=== PATIENT | male | born 1950 | race Caucasian/White ===

== ENCOUNTER → 2019-10-11 16:58 | Outpatient (BNVA) | payer OTHER, SELFPAY | PROVIDERS: Family Provider Family Medicine; PCP Family Medicine; Visit Provider Nurse Practitioner Family | DX: S90.416A Abrasion, unspecified lesser toe(s), initial encounter (principal); L03.116 Cellulitis of left lower limb; I96 Gangrene, not elsewhere classified; L97.529 Non-pressure chronic ulcer of other part of left foot with unspecified severity; M86.172 Other acute osteomyelitis, left ankle and foot; X58.XXXA Exposure to other specified factors, initial encounter | CPT/HCPCS: 73630 ==

== ENCOUNTER 2019-10-11 17:56 | Inpatient (IN) | payer OTHER, MEDICARE, SELFPAY ==
[2019-10-11 18:22] VITALS: BP 135/105; PULSE 106; RESP 16; TEMP 36.9; O2SAT 97; BMI 25.8
--- NOTE | 2019-10-11 18:26 | ED_ITS ---
HPI - Extremity Problem General: Chief complaint: Extremity Problem,Nontraumatic Stated complaint: infected toe/left foot Time Seen by Provider: 10/11/19 18:22 History of Present Illness: HPI Narrative: Gokul is a nice 69-year-old male who comes in complaining of left great toe pain. Patient's had a callus to his toe for some time. Approximately 4 days ago he developed a blister to this area that is gotten progressively worse. Patient denies any fevers or chills but he does have pain to the great toe. Because of this he came in for evaluation. He denies any fevers or chills, nausea vomiting or pain other than in his toe. Patient denies ever have anything similar to this in the past. Associated symptoms: Deny chest pain, fever(s) or rash Review of Systems Const: Denies: fever(s), chills, body aches, fatigue, malaise or diaphoresis Eyes: Denies: change in vision, blurry vision, blind spots or photophobia ENMT: Denies: throat pain, odynophagia, hoarseness, swelling of lips/tongue, ear or mastoid pain, ear discharge, change in hearing or nasal discharge Card: Denies: chest pain, palpitations, irregular heart rhythm, edema, lightheadedness, syncope, pre-syncope, dyspnea on exertion or orthopnea Resp: Denies: dyspnea, productive cough, non-productive cough, wheezing, hemoptysis or chest congestion GI: Denies: abdominal pain, nausea, vomiting, hematemesis, coffee ground emesis, heartburn, diarrhea, constipation, GI cramping, hematochezia or melena : Denies: flank pain, dysuria, urinary frequency, urinary urgency or hematuria Musc: Denies: neck pain, back pain, extremity pain, extremity swelling, joint pain, joint swelling, joint redness, joint warmth or joint stiffness Skin/Breast: Reports: other (Blister with cellulitis of left great toe); Denies: rash, pruritus, erythema, skin tenderness or jaundice Neuro: Denies: headache(s), numbness in extremities, weakness in extremities, sensory changes, lack of coordination, difficulty walking, dizziness, vertigo, confusion or Slurred speech present Jamal/Lymph: Denies: easy bruising, easy bleeding, petechiae, purpura or enlarged lymph nodes All/Imm: Denies: urticaria, throat swelling, tongue swelling, facial swelling or acute wheezing PFSH ED PFSH: Medical History Blister of foot Coronary artery disease Depression Dyslipidemia Hypertension Insulin dependent diabetes mellitus Surgical History Status post cholecystectomy Stented coronary artery 2003 Family History Father Psychiatric illness Depression Mother Cancer Breast cancer Social History Smoking and tobacco status: former smoker Alcohol intake: never Substance/Drug Use: never Household members: spouse Housing: House Physical Exam Const: COMMON NORMALS: no acute distress, patient oriented x3, no limitations, healthy appearing and well nourished GENERAL APPEARANCE: cooperative, well kempt and well developed HENMT: COMMON NORMALS: normocephalic, atraumatic, external ears normal, EAC's normal and Normal external nose present HEAD & SCALP: normal to inspection, normocephalic and atraumatic FACE & SINUS: normal facial exam and face symmetric NOSE: Normal external nose present and Normal nares present E XTERNAL EAR: Yes external ears normal EXTERNAL AUDITORY CANAL: EAC's normal MOUTH: Normal oral and palatal mucosa present, lip normal and tongue normal Eye: COMMON NORMALS: Equal, round and reactive pupils present and conjunctivae normal GENERAL EYE: appearance normal, both eyes and all related structures ALIGNMENT: Yes alignment normal PERIORBITAL: periorbital findings normal EYELID: eyelids normal CONJUNCTIVA: Yes conjunctivae normal SCLERA: sclerae normal PUPIL: Yes Equal, round and reactive pupils present Neck/C-Spine: COMMON NORMALS: full ROM, no lymphadenopathy, supple, no meningeal signs and no JVD GENERAL: Yes normal visual inspection and Yes trachea midline Chest: COMMONS NORMALS: normal inspection of the chest and normal palpation of entire chest wall Resp: COMMON NORMALS: normal respiratory effort, No retractions and No use of accessory muscles EFFORT & INSPECTION: Yes able to speak in complete sentences and Yes symmetric chest movement AUSCULTATION: no crackles, no rales, no rhonchi and no wheezes Cardio: COMMON NORMALS: no JVD, regular rate, regular rhythm, S1 normal heart sound present and S2 normal heart sound present RATE: regular rate RHYTHM: regular rhythm HEART SOUNDS: S1 normal heart sound present, S2 normal heart sound present, no click, no gallops, no murmurs, no rubs and abnormal split S2 GI: COMMON NORMALS: Soft to palpation and No hepatosplenomegaly present PALPATION: Yes Soft to palpation, No Tenderness to palpation present (GI), No Guarding due to palpation present (GI), No Rigid due to palpation, Yes No hepatosplenomegaly present, No Hernia present, No Palpable mass present and No Pulsatile mass present : COMMON NORMALS: Yes no CVA tenderness BLADDER/KIDNEY EXAM: Yes no CVA tenderness Back/Pelvis: COMMON NORMALS: no CVA tenderness, thoracic and lumbar spine normal to inspection, no thoracic nor lumbar tenderness and thoraco-lumbar ROM normal Extremity: COMMON NORMALS: normal to inspection, full ROM, capillary refill normal, no joint enlargement, no clubbing, cyanosis or edema and no calf tenderness Neuro: COMMON NORMALS: patient oriented x3, CN's II-XII intact bilaterally, moves all extremities, no focal motor deficits and no sensory deficits noted MENINGEAL SIGNS: Yes no meningeal signs SPEECH: speech normal Psych: COMMON NORMALS: mental status grossly normal, Normal thought process present, cooperative, normal affect, speech normal and activity/motor behavior normal APPEARANCE: Yes well kempt SPEECH: Yes normal speech THOUGHT PROCESS: Normal thought process present Skin: COMMON NORMALS: turgor normal, no jaundice, no petechiae and no mottling NARRATIVE SKIN EXAM: Left great toe on dorsal aspect has blistering callus. Fluid underlying looks purulent and hemorrhagic. Mild surrounding cellulitis. GENERAL SKIN EXAM: turgor normal Course Vital Signs: Vital signs: Vital Signs Temperature 98.5 F 10/11/19 18:22 Pulse Rate 95 10/11/19 21:28 Respiratory Rate 14 10/11/19 21:28 Blood Pressure 129/71 10/11/19 21:28 Pulse Oximetry 96 10/11/19 21:28 MDM - Extremity (Nontraumatic) MDM Narrative: Medical decision making narrative: The case was reviewed with Drs. Amos and . They will admit and consult respectively. Patient's wound was opened and a tissue culture was obtained. He has been covered with Zosyn and vancomycin. There is a small amount of soft tissue gas in the toe but that does not extend beyond the DIP joint. I see no evidence of necrotizing fasciitis at this time. Lab Data: Attestation: I reviewed the patient's lab results. Labs: Lab Results 10/11/19 10/11/19 10/11/19 Range/Units 19:00 19:00 19:00 WBC 9.8 (4.0-10.0) 10^3/ uL RBC 4.90 (4.1-5.3) 10^6/u L Hgb 14.4 (11.7-16.6) g/dL Hct 42.9 (42.0-52.0) % MCV 87.6 (80-94) fL MCH 29.4 (28.0-34.0) pg MCHC 33.6 (30.0-36.0) g/dL RDW 12.6 (12.1-15.1) % Plt Count 195 (130-400) 10^3/c mm MPV 10.4 (7.4-10.4) fL Neut % (Auto) 75.5 % Lymph % (Auto) 16.2 % Greenwood % (Auto) 7.4 % Eos % (Auto) 0.2 % Baso % (Auto) 0.2 % Neut # (Auto) 7.4 (1.8-7.7) 10^3/u L Lymph # (Auto) 1.6 (0.8-4.8) 10^3/u L Greenwood # (Auto) 0.7 (0.2-0.9) 10^3/u L Eos # (Auto) 0.0 (0.0-0.8) 10^3/u L Baso # (Auto) 0.0 (0.0-0.1) 10^3/u L Nucleated RBC % (a uto) 0 % Nucleated RBCs # 0.0 /100WBC PT 13.50 H (10.5-13.3) SECO NDS INR 1.00 (0.8-1.2) APTT 27.7 (23.9-36.7) SECO NDS Sodium 132 L (136-145) mmol/L Potassium 4.5 (3.5-5.1) mmol/L Chloride 97 L (98-107) mmol/L Carbon Dioxide 24 (22-29) mmol/L Anion Gap 15.5 (5-19) BUN 16 (8-23) mg/dL Creatinine 0.8 (0.7-1.2) mg/dL GFR Calculation 95.8 (90-130) mL/min Glucose 313 H (65-115) mg/dL Calculated Osmolal ity 282 L (285-295) mOsm/k g Lactic Acid (0.5-2.2) mmol/L Calcium 9.1 (8.5-10.5) mg/dL Magnesium 2.1 (1.7-2.3) mg/dL Total Bilirubin 0.5 (0.15-1.2) mg/dL AST 12 (0-40) U/L ALT 18 (0-41) U/L Alkaline Phosphata se 95 (40-130) IU/L Total Protein 6.6 (6.6-8.7) g/dL Albumin 4.2 (3.5-5.2) g/dL Globulin 2.4 (1.3-4.6) g/dL Serum Ketones (Negative) 10/11/19 10/11/19 Range/Units 19:00 19:00 WBC (4.0-10.0) 10^3/ uL RBC (4.1-5.3) 10^6/u L Hgb (11.7-16.6) g/dL Hct (42.0-52.0) % MCV (80-94) fL MCH (28.0-34.0) pg MCHC (30.0-36.0) g/dL RDW (12.1-15.1) % Plt Count (130-400) 10^3/c mm MPV (7.4-10.4) fL Neut % (Auto) % Lymph % (Auto) % Greenwood % (Auto) % Eos % (Auto) % Baso % (Auto) % Neut # (Auto) (1.8-7.7) 10^3/u L Lymph # (Auto) (0.8-4.8) 10^3/u L Greenwood # (Auto) (0.2-0.9) 10^3/u L Eos # (Auto) (0.0-0.8) 10^3/u L Baso # (Auto) (0.0-0.1) 10^3/u L Nucleated RBC % (a uto) % Nucleated RBCs # /100WBC PT (10.5-13.3) SECO NDS INR (0.8-1.2) APTT (23.9-36.7) SECO NDS Sodium (136-145) mmol/L Potassium (3.5-5.1) mmol/L Chloride (98-107) mmol/L Carbon Dioxide (22-29) mmol/L Anion Gap (5-19) BUN (8-23) mg/dL Creatinine (0.7-1.2) mg/dL GFR Calculation (90-130) mL/min Glucose (65-115) mg/dL Calculated Osmolal ity (285-295) mOsm/k g Lactic Acid 1.0 (0.5-2.2) mmol/L Calcium (8.5-10.5) mg/dL Magnesium (1.7-2.3) mg/dL Total Bilirubin (0.15-1.2) mg/dL AST (0-40) U/L ALT (0-41) U/L Alkaline Phosphata se (40-130) IU/L Total Protein (6.6-8.7) g/dL Albumin (3.5-5.2) g/dL Globulin (1.3-4.6) g/dL Serum Ketones Negative (Negative) Imaging Data^: Left Foot: My impression: No evidence of osteomyelitis but gas present in tissue of the toe. US Vascular: My impression: Ultrasound venous Doppler left lower extremity -no DVT Ultrasound arterial Doppler left lower extremity -monophasic flow throughout. ETHAN 0.59. Discharge Plan Discharge Patient Disposition: Admitted As Inpatient Clinical Impression: Cellulitis of foot Condition: Stable Prescriptions: No Action losartan 100 mg tablet 100 mg PO DAILY RF: 0 metoprolol tartrate 25 mg tablet 12.5 mg PO BID RF: 0 aspirin [Aspir-Jolly] 325 mg tablet,delayed release (DR/EC) 325 mg PO DAILY RF: 0 SLIDING SCALE INSULIN SUBCUT RF: 0 paroxetine HCl 20 mg tablet 20 mg PO DAILY RF: 0 Referrals: Tian Anne MD [Primary Care Provider] - Coding Level of Care Code ED Material Clerk for [facility]
--- NOTE | 2019-10-11 18:30 | USCV_ITS ---
Ricardo, Joe Age: 69 Gender: M : 1950 Exam Date: 10/11/2019 19:40 Ordering Phys: Sudha Livingston DO Technologist: Rebecca Arellano Exam Location: [facility] – [place] Indication: PAIN HISTORY: Left foot pain, diabetic, discoloration and foul odor left great toe PROCEDURES: On the left side, the common femoral, superficial femoral, profunda femoral, popliteal, posterior tibial, greater saphenous veins, and the peroneal trunk were identified and interrogated in the standard fashion. These veins were found to be easily compressible with spontaneous blood flow. FINDINGS: No DVT or superficial thrombus seen in any vessel visualized in left leg CONCLUSIONS Negative left lower extremity deep venous ultrasound. Dr. Rosangela Sylvester MD (Electronically Signed) Final Date: 12 October 2019 09:31 S
--- NOTE | 2019-10-11 18:30 | XR_ITS ---
WS: [id number] Left foot, 3 views, 10/11/2019 2001 hours Clinical Data: infection Comparison: Left foot, 10/11/2019, 1720 hours. Findings: No fractures or dislocations are seen. No bone destruction or erosion is noted. No evidence of osteom yelitis is seen. The minimal soft tissue disruption on the ventral surface of the left great toe agai n is seen. There is an Achilles spur noted. XR/XR foot LT min 3V* [id number] Impression: 1. Negative for bony abnormalities. 2. Diminished air in the soft tissue of the ventral surface of the left great t oe.
--- NOTE | 2019-10-11 18:30 | USCV_ITS ---
Gokul Silva Age: 69 Gender: M : 1950 Exam Date: 10/11/2019 19:49 Ordering Phys: Sudha Livingston DO Technologist: Rebecca Arellano [place]am [place] [facility] [place] Indication: PAIN Risk Factors: diabetic Previous Vascular Surgery: none RIGHT LEFT BP: 136.0 / 71.00 BP: / 0 Waveform Velocity (cm/s) Velocity (cm/s) Waveform Iliac Prox 37.5 Monophasic Iliac Mid 47.0 Monophasic Iliac Distal Monophasic 51.0 BRANCH ADMINISTRATOR 70.7 Monophasic SFA Prox 27.2 Monophasic SFA Mid 93.1 Monophasic SFA Dist 40.6 Monophasic POP 59.8 Monophasic STOCKBROKER 44.4 Monophasic DPA 22.4 Monophasic ETHAN 0.6 FINDINGS bluish discolaration and foul odor from left great toe. C/O pain in toe to ankle area left Monophasic and continuous waveforms on the left side Diminished resting ETHAN 0.6 CONCLUSIONS Abnormal resting ETHAN on the left side, suggestive of moderately severe obstructive arterial disease possibly at the aortoiliac level Abnormal Doppler waveforms, may suggest collateral circulation Dr Dario Moreno MD FACC (Electronically Signed) Final Date: 13 October 2019 16:54 S
[2019-10-11 19:16] LABS: Basophils % 0.2 %; Eosinophils % 0.2 %; Hematocrit 42.9 % (42.0-52.0); Hemoglobin 14.4 g/dL (11.7-16.6); Lymphocytes # 1.6 10^3/uL (0.8-4.8); Lymphocytes % 16.2 %; Mean Corpuscular HGB Conc 33.6 g/dL (30.0-36.0); Mean Corpuscular Hemoglobin 29.4 pg (28.0-34.0); Mean Corpuscular Volume 87.6 fL (80-94); Mean Platelet Volume 10.4 fL (7.4-10.4); Monocytes # 0.7 10^3/uL (0.2-0.9); Monocytes % 7.4 %; Neutrophils # 7.4 10^3/uL (1.8-7.7); Neutrophils % 75.5 %; Nucleated Red Blood Cells % 0 %; Platelet Count 195 10^3/cmm (130-400); Red Cell Distribution Width 12.6 % (12.1-15.1); White Blood Count 9.8 10^3/uL (4.0-10.0)
[2019-10-11] MEDS: piperacillin-tazobactam 3.375 GM in sodium chloride 0.9% (plus) 50 ML IV (19:26)
[2019-10-11 19:29] VITALS: BP 126/76; PULSE 106; RESP 18; O2SAT 97
[2019-10-11 19:38] LABS: Ketone (Acetest) Serum Negative (Negative)
[2019-10-11 19:42] LABS: Partial Thromboplastin Time 27.7 SECONDS (23.9-36.7)
[2019-10-11 19:50] LABS: Alanine Aminotransferase 18 U/L (0-41); Albumin Level 4.2 g/dL (3.5-5.2); Alkaline Phosphatase 95 IU/L (40-130); Anion Gap 15.5 (5-19); Aspartate Amino Transferase 12 U/L (0-40); Blood Urea Nitrogen 16 mg/dL (8-23); Calcium 9.1 mg/dL (8.5-10.5); Carbon Dioxide 24 mmol/L (22-29); Chloride 97 mmol/L (98-107); Creatinine Clr Calc Pharmacy 94.2461; Globulin 2.4 g/dL (1.3-4.6); Glomerular Filtration Rate 95.8 mL/min (90-130); Glucose 313 mg/dL (65-115); Magnesium 2.1 mg/dL (1.7-2.3); Osmolality Calculated 282 mOsm/kg (285-295); Potassium 4.5 mmol/L (3.5-5.1); Sodium 132 mmol/L (136-145); Total Bilirubin 0.5 mg/dL (0.15-1.2); Total Protein 6.6 g/dL (6.6-8.7)
[2019-10-11 20:04] VITALS: BP 129/74; PULSE 94; RESP 16; O2SAT 97
--- NOTE | 2019-10-11 21:23 | P.HP_ITS ---
Providers/Chief Complaint Primary Care Provider: Tian Anne MD Chief Complaint: infected toe/left foot History of Present Illness Gokul Silva is a 69 year old male who carries history of coronary disease status post PCI, insulin-dependent diabetes, coming with chief complaint of worsening left toe swelling. 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 For last couple of days she has been noticing mild swelling of his left foot until yesterday he started noticing some redness and streaking around her left great toe. He is denying any fever, nausea, vomiting, chills, dysuria. His toe is getting more swollen and he noticed a blood-filled blister as well, he walks barefoot in his house and sometimes outside the house, he has cats and there is a lot of wildlife around his house as well. He cannot recall any trauma to his foot. Diagnostics in the ER revealed normal body temperature, normal blood pressure, he is not septic X-ray of the foot is showing soft tissue swelling with gas formation Concern for gas gangrene Dr. Mac has been notified Review of Systems Const: Reports: fever(s); Denies: chills, body aches or fatigue Eyes: Denies: change in vision ENMT: Denies: throat pain Card: Denies: chest pain Resp: Denies: dyspnea GI: Denies: abdominal pain : Denies: flank pain Musc: Reports: joint pain, joint swelling, joint redness, joint warmth and joint stiffness Skin/Breast: Reports: rash, erythema, changing lesions, changes in skin color and nail changes Neuro: Denies: headache(s) Psych: Denies: anxiety Endo: Denies: polyuria Jamal/Lymph: Denies: easy bruising All/Imm: Denies: urticaria Medications/Allergies Home Medications Medication Instructions Recorded Confirmed Last Taken Type SLIDING SCALE INSULIN SUBCUT 10/11/19 10/11/19 Unknown History aspirin 325 mg tablet,delayed 325 mg PO DAILY 10/11/19 Unknown History release losartan 100 mg tablet 100 mg PO DAILY 10/11/19 Unknown History metoprolol tartrate 25 mg tablet 12.5 mg PO BID 10/11/19 Unknown History paroxetine HCl 20 mg tablet 20 mg PO DAILY 10/11/19 10/11/19 Unknown History Allergies Allergy/AdvReac Type Severity Reaction Status Date / Time cephalexin [From Keflex] Allergy ALGY-Redness Verified 10/11/19 18:25 of Skin PFSH Acute PFSH: Medical History Blister of foot Coronary artery disease Depression Dyslipidemia Hypertension Insulin dependent diabetes mellitus Surgical History Status post cholecystectomy Stented coronary artery 2003 Family History Father Psychiatric illness Depression Mother Cancer Breast cancer Social History Smoking and tobacco status: former smoker Alcohol intake: never Substance/Drug Use: never Household members: spouse Housing: House Vitals/I&O/Wt Last Vital Signs Temp 98.5 F 10/11/19 18:22 Pulse 94 10/11/19 20:04 Resp 16 10/11/19 20:04 BP 129/74 10/11/19 20:04 Pulse Ox 97 10/11/19 20:04 10/11/19 10/11/19 10/11/19 06:59 14:59 22:59 Intake Total 50 / 50 Balance 50 / 50 Weight last 48 hrs Weight 81.647 kg Physical Exam Narrative: EXAM NARRATIVE: Head to toe examination Patient laying comfortably in his bed Afebrile S1, S2 no tachycardia Abdomen soft nontender nondistended EOMI, PERRLA Neurologically nonfocal exam Lungs are clear to auscultation Left lower leg has 1+ trace edema Left great toe plantar side has an open blister with serosanguineous discharge and blood-filled blister on the lateral side, absence of sensation up to his knee No crepitation Hyperemia without any signs of cyanosis or gangrene 1+ dorsalis pedis pulse on left as compared to right dorsalis pedis Data : 10/11/19 19:00 10/11/19 19:00 Micro: Microbiology 10/11/19 19:01 Blood Culture - Preliminary Blood SPECIMEN COLLECTED 10/11/19 19:00 Blood Culture - Preliminary Blood SPECIMEN COLLECTED A&P Assessment and plan (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 Mac is planning to take him to the OR for stent in the morning, will follow up with the culture sent from OR, hold losartan We will make him n.p.o., hold DVT prophylaxis, patient was eating dinner at the time of interview around 9:30 PM Hold insulin IV fluid resuscitation Analgesia with morphine and bowel regimen Status: Acute (2) Cellulitis of foot: He will need long-term podiatry follow-up, [facility], this might take some time until then advised him to follow-up with Dr. Mac Status: Acute (3) Diabetic foot ulcer: Check A1c level, he is hyperglycemic, does not follow-up with air brake operator or the retina specialist Status: Acute Attestations Medical Necessity Statement*: Anticipating stay in the hospital cross more than 2 midnights currently need OR evaluation for his worsening diabetic foot ulcer with gas formation Coding Level of Care Code Acute Trench Trimmer Fine for [facility] Diagnoses Gas gangrene A48.0 Cellulitis of foot L03.119 Diabetic foot ulcer E11.621; L97.509
[2019-10-11] MEDS: lidocaine 1% INJ 20 mL IM (21:27)
[2019-10-11 21:28] VITALS: BP 129/71; PULSE 95; RESP 14; O2SAT 96
[2019-10-11 22:19] VITALS: BP 114/66; PULSE 101; RESP 18; O2SAT 95
[2019-10-11 22:22] VITALS: BP 114/66; PULSE 101; RESP 24; O2SAT 97
[2019-10-11 23:31] LABS: C Reactive Protein 103.2 mg/L (0.0-4.9)
[2019-10-11] MEDS: sodium chloride 0.9% 1,000 ML 75 ML IV (23:43)
--- NOTE | 2019-10-11 23:47 | PC.PHAR ---
Vancomycin is dosed at 1000mg IVPB every 12 hours to produce a predicted trough level of 18.94 (population based pharmacokinetic analysis). A trough level has been ordered from the lab to be obtained before the fourth dose to confirm and adjust if needed.
[2019-10-12] VITALS (9 sets, daily range): BP systolic 107–160; BP diastolic 66–83; PULSE 79–96; RESP 14–20; TEMP 36.5–37.7; O2SAT 94–97
[2019-10-12 00:05] LABS: Estmated Average Glucose 240
--- NOTE | 2019-10-12 00:12 | PC.PHAR ---
Vancomycin is dosed at 1500mg IVPB every 12 hours to produce a predicted trough level of 17.19 (population based pharmacokinetic analysis). A trough level has been ordered from the lab to be obtained before the fourth dose to confirm and adjust if needed. The Zosyn is dosed at 3.375gm IVPB every 8 hours, each dose to be infused over 4 hours per extended infusion protocol.
[2019-10-12 00:16] LABS: Erythrocyte Sedimentation Rate 33 mm/hr (0-10)
[2019-10-12 01:02] LABS: Bacteria Urine 1+; Bilirubin Urine Neg (NEGATIVE); Blood Urine Neg (Negative); Glucose Urine UA 4+ (Normal); Ketones Urine Negative (Negative); Leukocyte Esterase Urine Negative (Negative); Nitrate Urine Negative (Negative); Protein Urine Neg (Negative); Squamous Epithelial Cell Urine 0-4 (0-5); Urine Appearance Clear (CLEAR); Urine Color Yellow (Yellow); Urobilinogen Urine Norm (Negative); pH Urine 5 (5-7)
[2019-10-12] MEDS: piperacillin-tazobactam 3.375 GM in sodium chloride 0.9% (plus) 50 ML IV ×3 (04:20→19:52)
[2019-10-12 04:34] LABS: Anion Gap 15.5 (5-19); Blood Urea Nitrogen 12 mg/dL (8-23); Calcium 9.1 mg/dL (8.5-10.5); Carbon Dioxide 23 mmol/L (22-29); Chloride 101 mmol/L (98-107); Creatinine Clr Calc Pharmacy 94.2461; Glomerular Filtration Rate 133.6 mL/min (90-130); Glucose 247 mg/dL (65-115); Osmolality Calculated 284 mOsm/kg (285-295); Potassium 4.5 mmol/L (3.5-5.1); Sodium 135 mmol/L (136-145)
[2019-10-12 05:56] LABS: Basophils % 0.1 %; Eosinophils # 0.1 10^3/uL (0.0-0.8); Eosinophils % 0.7 %; Hematocrit 39.2 % (42.0-52.0); Hemoglobin 13.3 g/dL (11.7-16.6); Lymphocytes # 1.4 10^3/uL (0.8-4.8); Lymphocytes % 21.2 %; Mean Corpuscular HGB Conc 33.9 g/dL (30.0-36.0); Mean Corpuscular Hemoglobin 29.7 pg (28.0-34.0); Mean Corpuscular Volume 87.5 fL (80-94); Mean Platelet Volume 10.9 fL (7.4-10.4); Monocytes # 0.6 10^3/uL (0.2-0.9); Monocytes % 8.6 %; Neutrophils # 4.6 10^3/uL (1.8-7.7); Neutrophils % 69.1 %; Nucleated Red Blood Cells % 0 %; Platelet Count 181 10^3/cmm (130-400); Red Blood Count 4.48 10^6/uL (4.1-5.3); Red Cell Distribution Width 12.5 % (12.1-15.1); White Blood Count 6.7 10^3/uL (4.0-10.0)
--- NOTE | 2019-10-12 06:02 | PM.CONSULT ---
Providers/Reason For Consult Consulting Physican/Specialty*: Angelo Mac D.P.M. Reason for Consult*: Diabetic ulcer with gangrene left hallux Attending Physician: Bhanu Amos MD Primary Care Provider: Tian Anne MD History of Present Illness History of Present Illness Gokul Silva is a 69 year old diabetic male admitted to hospital service 10/11/2019 for gangrenous left great toe. 2 days ago he noticed a blood filled blister initially went to urgent care and was referred for to the emergency room due to findings of soft tissue emphysema on x-ray at the left hallux. He denies any known puncture wound or injury patient denies any subjective nausea, vomiting, fever, chills, shortness of breath or chest pain. Review of Systems General: Reports: 10 or more systems reviewed and unremarkable except in HPI and below Const: Denies: fever(s) or chills Card: Denies: chest pain or palpitations Resp: Denies: productive cough GI: Denies: abdominal pain, nausea or vomiting : Denies: flank pain Musc: Reports: extremity swelling, joint pain, joint stiffness, limited range of motion and deformity Skin/Breast: Reports: sores, nail changes and change in hair; Denies: rash Neuro: Reports: numbness in extremities, sensory changes and difficulty walking Psych: Denies: suicidal ideation Jamal/Lymph: Denies: easy bruising Meds/Allergies Home Medications and Allergies Home Medications Medication Instructions Recorded Confirmed Last Taken Type SLIDING SCALE INSULIN SUBCUT 10/11/19 10/11/19 10/09/19 History aspirin 325 mg tablet,delayed 325 mg PO DAILY 10/11/19 10/11/19 10/10/19 History release losartan 100 mg tablet 100 mg PO DAILY 10/11/19 10/11/19 10/10/19 History metoprolol tartrate 25 mg tablet 12.5 mg PO BID 10/11/19 10/11/19 10/10/19 History paroxetine HCl 20 mg tablet 20 mg PO DAILY 10/11/19 10/11/19 10/11/19 History Allergies Allergy/AdvReac Type Severity Reaction Status Date / Time cephalexin [From Keflex] Allergy ALGY-Redness Verified 10/11/19 18:25 of Skin Current Medications Current Medications Generic Name Dose Route Start Last Admin Trade Name Freq PRN Reason Stop Dose Admin Piperacillin Sod/Tazobactam 50 mls @ 12.5 mls/hr 10/12/19 03:30 10/12/19 04:20 Sod 3.375 gm/ Sodium Chloride IV 12.5 mls/hr Q8H TIMOTEO Administration Protocol As Directed Sodium Chloride 1,000 mls @ 75 mls/hr 10/11/19 23:25 10/12/19 02:30 Sodium Chloride 0.9% IV 75 mls/hr .[id number] TIMOTEO Infusion Vancomycin HCl 1,500 mg/ 250 mls @ 250 mls/hr 10/12/19 00:00 10/12/19 02:30 Sodium Chloride IV Infused Q12H TIMOTEO Infusion Protocol As Directed PFSH Acute PFSH: Medical History Blister of foot Coronary artery disease Depression Dyslipidemia Hypertension Insulin dependent diabetes mellitus Surgical History Status post cholecystectomy Stented coronary artery 2003 Family History Father Psychiatric illness Depression Mother Cancer Breast cancer Social History Smoking and tobacco status: former smoker Alcohol intake: never Substance/Drug Use: never Household members: spouse Housing: House Vitals/I&O/Wt Last Vital Signs Temp 98.1 F 10/12/19 04:00 Pulse 86 10/12/19 04:00 Resp 18 10/12/19 04:00 BP 120/76 10/12/19 04:00 Pulse Ox 97 10/12/19 04:00 10/11/19 10/11/19 10/12/19 14:59 22:59 06:59 Intake Total 50 / 50 346.25 / 396.25 Output Total 300 / 300 Balance 50 / 50 46.25 / 96.25 Weight last 48 hrs Weight 180 lb Physical Exam Narrative: EXAM NARRATIVE: GENERAL: Patient is alert and oriented ?3 and in no acute distress. The following is a focused bilateral lower extremity exam. VASCULAR: Dorsalis pedis and posterior tibial arteries faintly palpable. Capillary refill time less than 3 seconds to the distal hallux bilaterally. Calf is supple and nontender proximally and distally. Diminished pedal hair growth bilaterally. Popliteal arteries palpable bilaterally. Focal edema to the left hallux. Utilizing arterial Doppler biphasic signal at the left dorsalis pedis and posterior tibial arteries appreciated. NEUROLOGICAL: Protective sensation intact 0/10 sites, tested with Quincy Jazmín monofilament to bilateral feet. DERMATOLOGICAL: Full-thickness wound with devitalized tissue at the plantar aspect of left hallux there is strong malodor present, purulence present, probes to bone at the plantar lateral aspect of the wound. Wound measures approximately 2 cm x 4 cm x 0.5 cm with surrounding erythema there is proximal streaking to the level of the forefoot. MUSCULOSKELETAL: No tenderness with debridement or palpation to the left hallux secondary to neuropathy. External dorsiflexion 5 degrees to neutral. First metatarsal phalangeal joint dorsiflexion 20 degrees at the left. Rectus foot type. No pain with posterior calf squeeze. 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 Silva is a 69-year-old insulin-dependent diabetic male A1c 10.0. 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 Patient is afebrile, white blood count 6.7. ESR 33, CRP 103.2 mg/L. On x-ray soft tissue emphysema appreciated localized to the left hallux, no obvious osteolysis. Wound probes to bone. I discussed clinical, radiographic and laboratory findings with patient at length. Discussed options of left hallux amputation versus surgical debridement and bone biopsy with wound care and long-term antibiotics for salvage efforts. Patient is agreeable to amputation of the left hallux. This is scheduled today 10/12/2019 at noon. Risks and complication of this procedure were discussed this includes residual infection, delayed healing at the incision site, dehiscence of the surgical incision, infection, need for further surgical debridement, need for higher level of amputation, need for antibiotic therapy, transfer pressure, decreased function of the left foot, transfer lesions and digital contractures of adjacent toes. Patient is agreeable and wishes to proceed. I was able to discuss plan of care with patient's Marie cell phone number is [phone] she states that she will be at the hospital this afternoon. 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
--- NOTE | 2019-10-12 07:36 | USCV_ITS ---
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 91.00 DPA 80.00 0.70 Ankle/Brachial Index 0.61 0.64 Pre-Exercise Toe Pressure FINDINGS Abnormal resting ABIs bilaterally Diminished resting TBI on the right side TBI was not obtained on the left side PVR waveforms showing loss of dicrotic notch bilaterally Low amplitude waveforms at the right ankle CONCLUSIONS Abnormal resting ETHAN on the left side, suggestive of moderately severe peripheral arterial disease Abnormal resting ETHAN and TBI on the right side , suggestive of mild to moderate peripheral arterial disease Dr Dario Moreno MD [facility] (Electronically Signed) Final Date: 13 October 2019 17:12 S
[2019-10-12] MEDS: aspirin 325 mg EC Tablet PO (09:14)
[2019-10-12] MEDS: clindamycin 150 mg Capsule 300 MG PO ×2 (09:14→21:38)
[2019-10-12] MEDS: metoprolol tartrate 25 mg Tablet 12.5 MG PO ×2 (09:14→18:13)
[2019-10-12] MEDS: sennosides-docusate Tablet 1 TAB PO (09:14)
[2019-10-12] MEDS: PARoxetine 20 mg Tablet PO (09:19)
[2019-10-12 09:57] LABS: Glucose Point of Care 178 mg/dL (70-110)
--- NOTE | 2019-10-12 10:19 | P.PN_ITS ---
Subjective Subjective: Interval history: Patient does not necessarily like being in the hospital but no specific complaints. He is never had a foot wound like this before. Currently n.p.o. with plan for surgery later on this morning to debride his toe. Appreciate Dr. Mac's assistance in this case Vitals/I&O/Wt Last Vital Signs Temp 99.5 F 10/12/19 07:38 Pulse 87 10/12/19 07:38 Resp 18 10/12/19 07:38 BP 134/74 10/12/19 07:38 Pulse Ox 95 10/12/19 07:38 10/11/19 10/12/19 10/12/19 22:59 06:59 14:59 Intake Total 50 / 50 346.25 / 396.25 Output Total 575 / 575 130 / 130 Balance 50 / 50 -228.75 / -178.75 -130 / -130 Weight last 48 hrs Weight 81.647 kg Physical Exam Const: OTHER: Alert, oriented x3, cooperative, a little sullen HENMT: OTHER: Normocephalic atraumatic, moist mucus membranes Eye: OTHER: Pupils reactive Resp: OTHER: Clear to auscultation bilaterally, no accessory muscle use noted Cardio: OTHER: Regular rate and rhythm, no murmurs GI: OTHER: Abdomen soft, nontender, nondistended with positive bowel sounds Extremity: NARRATIVE EXTREMITY EXAM: Left foot with intact dressing. I did not remove the dressing as has been evaluated by Dr. Mac with pictures inserted into the note and will be going to the OR later this morning Neuro: OTHER: Face symmetric, speech clear, moves all extremities Psych: OTHER: Normal affect Skin: OTHER: No other skin lesions noted to visible portions of the skin Data : 10/12/19 05:40 10/12/19 03:30 Micro: Microbiology 10/11/19 19:01 Blood Culture - Preliminary Blood SPECIMEN COLLECTED 10/11/19 19:00 Blood Culture - Preliminary Blood SPECIMEN COLLECTED A&P Assessment and plan (1) Gas gangrene: Plan is for OR today by Dr. Mac. CRP is 103.2 with an ESR of 33. 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 Corrective dose insulin added presently but will need to get on some long-acting insulin. In talking with the patient he states he only takes it as needed at home usually. Explained that he will need to take something regularly going forward to help with wound healing and decrease risk of recurrent similar problems Status: Acute (3) Hypertension: Chronically on losartan and beta-blockade Status: Acute Qualifiers: Hypertension type: essential hypertension Qualified Code(s): I10 - Essential (primary) hypertension (4) Dyslipidemia: Does not appear to be on any chronic treatment Status: Acute (5) Coronary artery disease: Chronic aspirin, beta-blockade and ARB Status: Acute Qualifiers: Coronary Disease-Associated Artery/Lesion type: habematolel artery [place] vs. transplanted heart: habematolel heart Associated angina: without angina Qualified Code(s): I25.10 - Atherosclerotic heart disease of habematolel coronary artery without angina pectoris (6) Depression: Status: Acute Qualifiers: Depression Type: unspecified Qualified Code(s): F32.9 - Major depressive disorder, single episode, unspecified Additional A&P Information N.p.o. for planned intervention today Check EKG preop Received Vanco and Zosyn in the emergency room, currently on vancomycin and clindamycin Add corrective dose insulin for now We will need to add long-acting insulin once taking oral intake Will need to reinforce regular use of diabetic medications in the outpatient setting On home aspirin and beta-blockade Home fluoxetine continued Losartan currently held in anticipation of intervention today Has pain medication, antiemetics and laxatives ordered Plan to start DVT prophylaxis postoperatively Supportive care otherwise Gave patient an opportunity to ask questions Anticipate patient will go home with his and will need follow-up in wound care clinic Full code Attestations Medical Necessity Statement*: Requires ongoing inpatient stay to address gangrene of the left great toe as noted above. At high risk of progressive disease if not treated. 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 transplanted heart: habematolel heart Associated angina: without angina Depression F32.9 Depression Type: unspecified
--- NOTE | 2019-10-12 10:28 | ECG_ITS ---
Measurements Intervals [place] Rate: 91 P: 26 PA: 170 QRS: 13 QRSD: 97 T: 15 QT: 335 QTc: 414 SINUS RHYTHM WITH OCCASIONAL SUPRAVENTRICULAR PREMATURE COMPLEXES POSSIBLE INFERIOR MYOCARDIAL INFARCTION [30 ms Q WAVE IN II/aVF], OF INDETERMINATE AGE No previous ECG available for comparison Electronically Signed On 10-12-2019 21:07:08 CDT by Daroi Moreno M.D. [email or web address]
--- NOTE | 2019-10-12 10:46 | PC.CHAP ---
Pastoral Care Encounter/Spiritual Assessment Type of Contact [x] Declined behavioral therapy coordinator visit [] Patient/Family/Request visit [] Outpatient visit [] Follow-up visit [] Physician referral [] Code/Alert [] Routine visit [] Staff referral [] Actively dying [] Patient sleeping [] Family support [] [] Out of room [] Palliative care [] [] Receiving care in room [] Pre-surgical visit [] Trauma [] Long length of stay [] ICU visit [] Other: Relational/Emotional Strength [] Patient feels connected with others/family/visitors/staff [] Distress [] Loneliness/isolation [] Abandonment Spirituality of Patient [] Person of [place] [] Attends Caodaism of their [place] [] Believes in Prayer [] Reads Bible or Worship materials [] There are Spiritual issues to be addressed 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 [] Prayer [] Active listening [] Non-anxious presence [] Spiritual/emotional support [] Crisis/trauma care [] Spiritual counseling [] Bereavement support [] Provided bereavement packet [] Provided Bible/devotional materials [] Provided toy/stuffed animal, coloring book to patient or family member [] Provided Communion [] Anointing/[place] [] Salvation [] Completed spiritual assessment [] Other: Impact on Illness or Injury [] Angry [] Fearful [] Anxious [] Often cries [] Exhaustion [] Unable to work [] Unable to attend sabianism [] Unable to walk/stand [] Unable to read [] Unable to drive [] Unable to eat/drink [] Unable to sleep [] Unable to be with family [] Patient intubated [] Other: Summary Rude and hostile attitude. Time spent with patient
--- NOTE | 2019-10-12 11:38 | P.ANESASSM_ITS ---
Pre-Anesthetic Assessment Pre-Anesthetic Assessment: Height/Weight: Height 1.78 m Weight 81.647 kg Temp Pulse Resp BP Pulse Ox 99.5 F 87 18 134/74 95 10/12/19 07:38 10/12/19 07:38 10/12/19 07:38 10/12/19 07:38 10/12/19 07:38 Proposed Procedure: Operation Date: 10/12/19 12:00 Proposed Procedures p Amputation Toe/s(Not Applicable) - Angelo Mac DPM Was Beta Harjit taken within 24 hours: Yes Last intake: Intake Last Solid Date 10/12/19 Social: Social History: No alcohol and No tobacco Exam: Pre-Anes Outpt Exam: alert, oriented x 3, clear to auscultation bilaterally and regular rate & rhythm Airway: Submandibular: WNL Cervical ROM: WNL MP: 2 Dentition: Full Pulmonary: Pulmonary: None reported CV/HEM: CV/HEM: HTN : : None reported Hepatic: Hepatic: None reported GI: GI: None reported Metabolic: Metabolic: DM Musc/skel: Musc/skel: None reported Neuropsych: Neuropsych: Depression Anesthetic Plan: ASA status: 3 Anesthesia: General and MAC Meds/Allergies Current Medications: Current Medications Generic Name Dose Route Start Last Admin Trade Name Freq PRN Reason Stop Dose Admin Aspirin 325 mg 10/12/19 09:00 10/12/19 09:14 Aspirin Ec PO 325 mg DAILY TIMOTEO Administration Clindamycin HCl 300 mg 10/12/19 09:00 10/12/19 09:14 Cleocin PO 300 mg TID TIMOTEO Administration Protocol Piperacillin Sod/T azobactam 50 mls @ 12.5 mls /hr 10/12/19 03:30 10/12/19 04:20 Sod 3.375 gm/ So dium Chloride IV 12.5 mls/hr Q8H TIMOTEO Administration Protocol As Directed Sodium Chloride 1,000 mls @ 75 ml s/hr 10/11/19 23:25 10/12/19 02:30 Sodium Chloride 0.9% IV 75 mls/hr .[id number] TIMOTEO Infusion Vancomycin HCl 1,5 00 mg/ 250 mls @ 250 mls /hr 10/12/19 00:00 10/12/19 02:30 Sodium Chloride IV Infused Q12H TIMOTEO Infusion Protocol As Directed Insulin Aspart 0 unit 10/12/19 08:00 10/12/19 10:23 Novolog SUBCUT 2 unit TIDWM TIMOTEO Administration Protocol Metoprolol Tartrat e 12.5 mg 10/12/19 09:00 10/12/19 09:14 Lopressor PO 12.5 mg BID TIMOTEO Administration Paroxetine HCl 20 mg 10/12/19 09:00 10/12/19 09:19 Paxil PO 20 mg DAILY TIMOTEO Administration Senna/Docusate Sod ium 1 tab 10/12/19 09:00 10/12/19 09:14 Senna-S PO 1 tab DAILY TIMOTEO Administration PFSH Anesthesia PFSH: Medical History (Updated 10/12/19 @ 10:25 by Dejah Ruiz MD) Blister of foot Coronary artery disease History of PCI Depression Dyslipidemia Hypertension Insulin dependent diabetes mellitus Surgical History Status post cholecystectomy Stented coronary artery 2003 Family History Father Psychiatric illness Depression Mother Cancer Breast cancer Social History Smoking and tobacco status: former smoker Alcohol intake: never Substance/Drug Use: never Household members: spouse Housing: House Data Anesthesia CBC & Chem 7: 10/12/19 05:40 10/12/19 03:30 Other Labs: Laboratory Results - last 48 hr 10/11/19 10/11/19 10/11/19 19:00 19:00 19:00 WBC 9.8 RBC 4.90 Hgb 14.4 Hct 42.9 MCV 87.6 MCH 29.4 MCHC 33.6 RDW 12.6 Plt Count 195 MPV 10.4 Neut % (Auto) 75.5 Lymph % (Auto) 16.2 [place] % (Auto) 7.4 Eos % (Auto) 0.2 Baso % (Auto) 0.2 Neut # (Auto) 7.4 Lymph # (Auto) 1.6 [place] # (Auto) 0.7 Eos # (Auto) 0.0 Baso # (Auto) 0.0 Nucleated RBC % (auto) 0 Nucleated RBCs # 0.0 ESR PT 13.50 H INR 1.00 APTT 27.7 Sodium 132 L Potassium 4.5 Chloride 97 L Carbon Dioxide 24 Anion Gap 15.5 BUN 16 Creatinine 0.8 GFR Calculation 95.8 Glucose 313 H POC Glucose Estimat Average Glucose Hemoglobin A1c Calculated Osmolality 282 L Lactic Acid Calcium 9.1 Magnesium 2.1 Total Bilirubin 0.5 AST 12 ALT 18 Alkaline Phosphatase 95 C-Reactive Protein Total Protein 6.6 Albumin 4.2 Globulin 2.4 Urine Color Urine Appearance Urine pH Ur Specific [place] Urine Protein Urine Glucose (UA) Urine Ketones Urine Blood Urine Nitrate Urine Bilirubin Urine Urobilinogen Ur Leukocyte Esterase Urine RBC Urine WBC Ur Squamous Epith Cells Urine Bacteria Serum Ketones 10/11/19 10/11/19 10/11/19 19:00 19:00 19:00 WBC RBC Hgb Hct MCV MCH MCHC RDW Plt Count MPV Neut % (Auto) Lymph % (Auto) [place] % (Auto) Eos % (Auto) Baso % (Auto) Neut # (Auto) Lymph # (Auto) [place] # (Auto) Eos # (Auto) Baso # (Auto) Nucleated RBC % (auto) Nucleated RBCs # ESR 33 H PT INR APTT Sodium Potassium Chloride Carbon Dioxide Anion Gap BUN Creatinine GFR Calculation Glucose POC Glucose Estimat Average Glucose Hemoglobin A1c Calculated Osmolality Lactic Acid 1.0 Calcium Magnesium Total Bilirubin AST ALT Alkaline Phosphatase C-Reactive Protein Total Protein Albumin Globulin Urine Color Urine Appearance Urine pH Ur Specific [place] Urine Protein Urine Glucose (UA) Urine Ketones Urine Blood Urine Nitrate Urine Bilirubin Urine Urobilinogen Ur Leukocyte Esterase Urine RBC Urine WBC Ur Squamous Epith Cells Urine Bacteria Serum Ketones Negative 10/11/19 10/11/19 10/12/19 19:00 19:00 00:15 WBC RBC Hgb Hct MCV MCH MCHC RDW Plt Count MPV Neut % (Auto) Lymph % (Auto) [place] % (Auto) Eos % (Auto) Baso % (Auto) Neut # (Auto) Lymph # (Auto) [place] # (Auto) Eos # (Auto) Baso # (Auto) Nucleated RBC % (auto) Nucleated RBCs # ESR PT INR APTT Sodium Potassium Chloride Carbon Dioxide Anion Gap BUN Creatinine GFR Calculation Glucose POC Glucose Estimat Average Glucose 240 Hemoglobin A1c 10.0 H Calculated Osmolality Lactic Acid Calcium Magnesium Total Bilirubin AST ALT Alkaline Phosphatase C-Reactive Protein 103.2 H Total Protein Albumin Globulin Urine Color Yellow Urine Appearance Clear Urine pH 5 Ur Specific [place] 1.020 Urine Protein Neg Urine Glucose (UA) 4+ H Urine Ketones Negative Urine Blood Neg Urine Nitrate Negative Urine Bilirubin Neg Urine Urobilinogen Norm Ur Leukocyte Esterase Negative Urine RBC 5-10 H Urine WBC 10-15 H Ur Squamous Epith Cells 0-4 H Urine Bacteria 1+ H Serum Ketones 10/12/19 10/12/19 10/12/19 03:30 05:40 09:54 WBC 6.7 RBC 4.48 Hgb 13.3 Hct 39.2 L MCV 87.5 MCH 29.7 MCHC 33.9 RDW 12.5 Plt Count 181 MPV 10.9 H Neut % (Auto) 69.1 Lymph % (Auto) 21.2 [place] % (Auto) 8.6 Eos % (Auto) 0.7 Baso % (Auto) 0.1 Neut # (Auto) 4.6 Lymph # (Auto) 1.4 [place] # (Auto) 0.6 Eos # (Auto) 0.1 Baso # (Auto) 0.0 Nucleated RBC % (auto) 0 Nucleated RBCs # 0.0 ESR PT INR APTT Sodium 135 L Potassium 4.5 Chloride 101 Carbon Dioxide 23 Anion Gap 15.5 BUN 12 Creatinine 0.6 L GFR Calculation 133.6 H Glucose 247 H POC Glucose 178 Estimat Average Glucose Hemoglobin A1c Calculated Osmolality 284 L Lactic Acid Calcium 9.1 Magnesium Total Bilirubin AST ALT Alkaline Phosphatase C-Reactive Protein Total Protein Albumin Globulin Urine Color Urine Appearance Urine pH Ur Specific [place] Urine Protein Urine Glucose (UA) Urine Ketones Urine Blood Urine Nitrate Urine Bilirubin Urine Urobilinogen Ur Leukocyte Esterase Urine RBC Urine WBC Ur Squamous Epith Cells Urine Bacteria Serum Ketones Micro: Microbiology 10/11/19 19:01 Blood Culture - Preliminary Blood SPECIMEN COLLECTED 10/11/19 19:00 Blood Culture - Preliminary Blood SPECIMEN COLLECTED Cardiac Studies: No Data to Display
[2019-10-12] MEDS: sodium chloride 0.9% 1,000 ML 30 ML IV (11:51)
[2019-10-12 12:04] LABS: Glucose Point of Care 190 mg/dL (70-110)
--- NOTE | 2019-10-12 12:44 | P.OP_ITS ---
Operative Report Date of procedure: October 12, 2019 Pre-op Diagnosis: Gas gangrene left great toe. Post-op diagnosis: same Post-op Findings: Devitalized tissue down the bone distal phalanx left hallux Procedure Done: Left great toe amputation through metatarsal phalangeal joint. CPT code 47673 Implants: 3-0 Vicryl. 4-0 nylon. Specimens removed/disposition: Left distal hallux bone and soft tissue sent to microbiology for culture and sensitivity. Pathology: Base of left hallux sent to pathology for permanent. Surgeon: Angelo Mac D.P.M. Medical Secretary: [place] Anesthesia: MAC Estimated blood loss: Minimal Tourniquet time: No tourniquet utilized IV fluids: None Urine output: None Complications: None Findings: Devitalized epidermis, dermis subcutaneous tissue tendon and bone at the distal phalanx left hallux. Clean margin at the first metatarsal phalangeal joint first metatarsal head appeared viable without signs of infection. Decreased bleeding however sufficient for skin healing. Condition: stable Disposition: floor Brief History: Gas gangrene left hallux with acute onset. No signs of sepsis. Soft tissue emphysema appreciated on plain film x-ray. Clinically wound probed to bone. Recommended left hallux amputation patient was agreeable. Discussed risks at length noted at consultation note documented earlier today. Procedure: Under mild sedation the patient was brought to the operating room and placed on the operative table in supine position. A timeout was performed. Anesthesia was administered by the anesthesia service. Local anesthesia injected by myself total of 20 cc of 0.5% Marcaine plain and a left Beauchamp block fashion. Well-padded pneumatic tourniquet was applied to the left ankle. No tourniquet utilized throughout the duration of the procedure. Attention was directed to the left foot where a full-thickness skin incision was made circumferentially in a fishmouth fashion at the first metatarsal phalangeal joint down to bone without skiving of the edges the left hallux was disarticulated through the metatarsal phalangeal joint sharply and passed from the operative field. Distal left hallux was sent to microbiology for culture and sensitivity, proximal hallux sent to pathology for permanent. Incision site was flushed with copious amounts of sterile saline solution. No pulsatile bleeders encountered. There was skin margin bleeding. Further irrigation was performed followed by extensor and flexor tendon resections at the most proximal margin. The first metatarsal head was directly visualized, there was no discoloration, normal firm density appreciated had bright white appearance without signs of infection. No further devitalized tissue appreciated at the foot. Further irrigation was performed followed by deep subcutaneous tissue closure which was reapproximated utilizing 3-0 Vicryl. Skin closed utilizing 4- 0 nylon without tension. Incision site was dressed with Adaptic, sterile 4 x 4's, ABD pad, Kerlix and Mike wrap without compression. Postop shoe was applied. Patient was transferred to the PACU with vital signs stable and vascular status intact. Following a period of postoperative monitoring he will be transferred back to the floor to continue empiric IV antibiotics at this time. He is to be limited weightbearing may heel touch only briefly for transfers with a postop shoe.
[2019-10-12 14:56] LABS: Glucose Point of Care 185 mg/dL (70-110)
--- NOTE | 2019-10-12 16:36 | PC.NURSE ---
PT STATED HE HAD WALKED TO BATHROOM WITHOUT USING CALL LIGHT AND INFORMED THE NURSE HE HAD A BM AND COULD NOT MAKE IT TO THE BATHROOM AND WAS TRYING TO CLEAN UP THE FLOOR AND LOST HIS BALANCE FALLING ONTO HIS KNEES AND THEN HITTING HIS HEAD ON THE BSC THAT WAS IN THE SHOWER. DR ARMSTRONG INFORMD, ASSESMENT DONE, PT HAS ABRASIONS ON KNEES AND THEN A REDDENED AREA TO FOREHEAD, PT IS ALERT AND ORIENTED, VITALS ARE READ, BP 148/79, HR86, RESPIRATIONS 18, TEMP 98.0. CHARGE NURSE ROSA RN ASSESSED PT WITH THIS NURSE WELL. NO OTHER INJURIES OR COMPLAINTS OF PAIN AT THIS TIME.
[2019-10-12] MEDS: sodium chloride 0.9% 1,000 ML 75 ML IV (19:55)
[2019-10-12 21:25] LABS: Glucose Point of Care 294 mg/dL (70-110)
[2019-10-13] VITALS: BP 124/76; PULSE 87; RESP 18; TEMP 37.2; O2SAT 97
[2019-10-13] MEDS: piperacillin-tazobactam 3.375 GM in sodium chloride 0.9% (plus) 50 ML IV (03:21)
--- NOTE | 2019-10-13 06:33 | PM.PN ---
Subjective Subjective: Interval history: Patient is seen bedside, he is 1 day status post left hallux amputation with primary closure doing well overnight denies any pain. Denies any fever. Tolerating regular diet. He is anxious to go home. He is okay for discharge from my standpoint. Clean margins taken in surgery, I did send specimens to path and microbiology which are pending. -Patient to remain limited weightbearing to the left lower extremity may heel touch for transfers with postop shoe otherwise should be resting and elevating, leave dressings intact until follow-up visit. -Will follow-up in podiatry clinic 10/18/2019 at 1 PM -I sent oral Bactrim to patient's pharmacy of choice [facility] will take Bactrim DS twice daily for 14 days Vitals/I&O/Wt Last Vital Signs Temp 99.0 F 10/13/19 00:00 Pulse 87 10/13/19 00:00 Resp 18 10/13/19 00:00 BP 124/76 10/13/19 00:00 Pulse Ox 97 10/13/19 00:00 10/12/19 10/12/19 10/13/19 14:59 22:59 06:59 Intake Total 803.75 / 803.75 300 / 1103.75 Output Total 155 / 155 280 / 435 Balance 648.75 / 648.75 -280 / 368.75 300 / 668.75 Weight last 48 hrs Weight 180 lb Physical Exam Narrative: EXAM NARRATIVE: Patient is alert and oriented ?3 and in no acute distress. The following is a focused bilateral lower extremity exam. VASCULAR: Dorsalis pedis and posterior tibial arteries faintly palpable. Capillary refill time less than 3 seconds to the distal hallux bilaterally. Calf is supple and nontender proximally and distally. Diminished pedal hair growth bilaterally. Popliteal arteries palpable bilaterally. Utilizing arterial Doppler biphasic signal at the left dorsalis pedis and posterior tibial arteries appreciated. NEUROLOGICAL: Protective sensation intact 0/10 sites, tested with [place] monofilament to bilateral feet. DERMATOLOGICAL: Status post left hallux amputation with primary closure, dressings are clean dry and intact no strikethrough bleeding. No proximal lymphangitic streaking erythema at the level of the dressing. MUSCULOSKELETAL: No pain at the perioperative site. Ankle dorsiflexion 5 degrees to neutral. First metatarsal phalangeal joint dorsiflexion 20 degrees at the left. Rectus foot type. No pain with posterior calf squeeze. 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 Silva is a 69-year-old insulin-dependent diabetic male 1 day status post left hallux amputation secondary to diabetic foot infection with gangrene. Doing well postop, denies any pain, is afebrile. Postoperative dressings are clean and dry without strikethrough. This will be left on until follow-up visit. -Patient okay for discharge from my standpoint. -Patient to follow-up in podiatry clinic 10/18/2019 at 1 PM -Leave current dressings in place and keep them clean and dry until follow-up visit -I sent oral Bactrim DS to be taken twice daily for 14 days to [facility] -Patient not experiencing any pain denies any need for pain medication on discharge -He is to be limited activity with postop shoe only may heel touch for transfers otherwise rest and elevate his left foot. 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
--- NOTE | 2019-10-13 06:43 | XR_ITS ---
WS: [id number] LEFT FOOT: 3 VIEW(S) TECHNIQUE: AP, oblique and lateral. HISTORY: post op COMPARISON: 10/11/2019 Since the prior examination the first phalanx has been surgically removed. Postsurgical changes in th e soft tissues distal to the first metatarsal head. No erosions at the first metatarsal head. Normal tarsal/metatarsal alignment. XR/XR foot LT min 3V* [id number] IMPRESSION: Interval resection first toe. No evident complications.
[2019-10-13 06:44] LABS: Glucose Point of Care 178 mg/dL (70-110)
[2019-10-13 08:00] VITALS: BP 152/78; PULSE 91; RESP 16; TEMP 36.7; O2SAT 97
[2019-10-13] MEDS: metoprolol tartrate 25 mg Tablet 12.5 MG PO (08:39)
[2019-10-13] MEDS: aspirin 325 mg EC Tablet PO (08:40)
[2019-10-13] MEDS: clindamycin 150 mg Capsule 300 MG PO (08:40)
[2019-10-13] MEDS: PARoxetine 20 mg Tablet PO (08:40)
--- NOTE | 2019-10-13 10:58 | P.DS_ITS ---
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 Mac, 10/12/2019 (4) Coronary artery disease: Status: Acute Problem details: History of PCI Qualifiers: Associated angina: without angina Coronary Disease-Associated Artery/Lesion type: [place] artery Platinum vs. transplanted heart: [place] heart Qualified Code(s): I25.10 - Atherosclerotic heart disease of [place] coronary artery without angina pectoris (5) Hypertension: Status: Acute Qualifiers: Hypertension type: essential hypertension Qualified Code(s): I10 - Essential (primary) hypertension (6) Dyslipidemia: Status: Acute (7) Depression: Status: Acute Qualifiers: Depression Type: unspecified Qualified Code(s): F32.9 - Major depressive disorder, single episode, unspecified Reason for Visit Reason for Visit: infected toe/left foot Hospital Course Hospital Course: Mr. Silva was admitted with evidence of gas gangrene of the left great toe. He was seen by podiatry. He was evaluated under anesthesia and ultimately decision was made to proceed to amputation of the left great toe. He had clean margins. Wound culture from admission were growing staph aureus prior to discharge. Sensitivities were pending. Cultures were collected during surgery as were blood cultures. These are still pending. With clean margins at the OR, it was felt safe for patient to be discharged home on oral antibiotics. He did have arterial Dopplers done though read was pending at the time of discharge. Venous duplex did not show any DVT. During the hospital stay, patient was noted to have significant hyperglycemia. Hemoglobin A1c was checked and was at 10. He was not able to tell us what type of insulin he has. He says he has 2 types. One is what he calls a controller insulin and the other when he takes as needed. He quit taking the controller insulin a while back because when his blood pressure is normalized to 120 or so he was symptomatic. Reviewed with him the absolute importance of better diabetic control to decrease the risk not only of recurrent infections like this but also to maximize wound healing from surgery. I had given patient some Levemir here, 6 units. Blood sugars were better than admission values but not where they need to be. I wrote a prescription to increase to 8 units and expect he will need it to be increased further but not knowing what type of insulin he has at home I was hesitant to go up too much. Patient prefers to discuss with his primary care provider Dr. Mack before making changes to insulin. I asked him in the interim to check his blood sugar several times a day and take a list of blood sugars with him to clinic. He can continue other medications. Patient was given an opportunity to ask questions prior to discharge. He expressed understanding of the need to have better blood sugar control and was able to repeat back to me the need to stay off of his leg and leave dressing intact until follow-up. Also reviewed not getting it wet or dirty. He was told to return or call Dr. Mac's office should he develop any fever, severe pain, significant bleeding or red streaks up his leg, or other concerning symptoms. Discharge Data Data Completed and Pending: Completed Studies During Hospitalization Category Date Time Status XR foot LT min 3V * [id number] Routine Exams 10/13/19 06:43 Completed XR foot LT min 3V * [id number] Stat Exams 10/11/19 18:30 [place] [address] Urgent Ultrasound 10/11/19 18:30 Completed Pending at discharge Category Date Time Status Abscess Culture a nd Gram Stain Stat Lab 10/11/19 21:10 Results Blood Culture Sta t Lab 10/11/19 19:01 Results Tissue Culture an d Gram Stain Stat Lab 10/12/19 12:24 Results Vancomycin Trough Timed Lab 10/13/19 11:00 Ordered Pathology: Surgic al [PTH] Routine Pth 10/12/19 12:51 [place] [address] Urge nt Ultrasound 10/11/19 18:30 [place] [address] Rout ine Ultrasound 10/12/19 07:36 Taken Labs from last 24 hours 10/13/19 10/12/19 10/12/19 06:28 21:23 14:52 POC Glucose 178 294 185 10/12/19 12:00 POC Glucose 190 Laboratory Tests 10/11/19 10/11/19 10/11/19 19:00 19:00 19:00 WBC Hgb ESR 33 H BUN Creatinine Hemoglobin A1c 10.0 H C-Reactive Protein 103.2 H 10/12/19 10/12/19 03:30 05:40 WBC 6.7 Hgb 13.3 ESR BUN 12 Creatinine 0.6 L Hemoglobin A1c C-Reactive Protein Vitals: Last Vital Signs Temp 98.1 F 10/13/19 08:00 Pulse 91 10/13/19 08:00 Resp 16 10/13/19 08:00 BP 152/78 10/13/19 08:00 Pulse Ox 97 10/13/19 08:00 Discharge Plan Discharge Patient Disposition: Home, Self-Care Condition: Stable Prescriptions: New acetaminophen 500 mg Tablet 500 mg PO Q6H PRN (Reason: mild pain or fever) Qty: 0 RF: 0 Levemir FlexTouch U-100 Insuln 100 unit/mL (3 mL) insulin pen 8 unit SUBCUT QPM Qty: 15 RF: 0 sulfamethoxazole-trimethoprim [Bactrim DS] 800-160 mg tablet 1 tab PO BID 14 Days Qty: 28 RF: 0 Continued losartan 100 mg tablet 100 mg PO DAILY RF: 0 metoprolol tartrate 25 mg tablet 12.5 mg PO BID RF: 0 aspirin [Aspir-Jolly] 325 mg tablet,delayed release (DR/EC) 325 mg PO DAILY RF: 0 SLIDING SCALE INSULIN SUBCUT RF: 0 paroxetine HCl 20 mg tablet 20 mg PO DAILY RF: 0 Discharge Orders: Discharge Order (Routine); Ordered 10/13/19 Ordered By: Dejah Ruiz Referrals: Angelo Mac DPM [Physician] - 10/18/19 1:00 pm (You have an appointment with Dr. Mac on October 17 at 1:00pm) Zohaib Mack [Primary Care Provider] - 10/18/19 3:30 am (Needs better blood sugar control. A1c 10.0. wrote for 8 u its of Levemir at bedtime. He just filled other insulin types and wants guidance from PCP for adjustments. Had foot infection requiring toe amputation. You have a phone visit on WedOctober 17 at 3:30pm. with Zohaib Mack.) Discharge Diet: Diabetic Discharge Activity: Limit activity as instructed Patient Instructions: Diabetes and Diet, Diabetes Mellitus Type 2 in Adults (DC) Activity Restrictions/Additional Instructions: Limited weight-bearing to the left lower extremity, may heel touch for transfers with postop shoe otherwise should be resting and elevating, leave dressings intact until follow-up visit. Follow-up in podiatry clinic 10/18/[address] Mac sent a prescription for oral Bactrim to pharmacy of [facility]. Take 1 tablet twice daily for 14 days. 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 transplanted heart: [place] heart Hypertension I10 Hypertension type: essential hypertension Dyslipidemia E78.5 Depression F32.9 Depression Type: unspecified
[2019-10-13 11:12] LABS: Glucose Point of Care 196 mg/dL (70-110)
[2019-10-13 11:36] VITALS: BP 146/74; PULSE 84; RESP 16; TEMP 37.9; O2SAT 95
[2019-10-13 11:53] LABS: Vancomycin Trough 13.2 ug/mL (10-15)
[2019-10-13 13:05] VITALS: BP 146/74; PULSE 84; RESP 16; TEMP 37.9; O2SAT 95
== END 2019-10-13 12:45 | disposition home or self-care (01) | DRG 255 ==
LOC: ER 21:58 → MEDSURG 22:14
PROVIDERS: Emergency Medicine; Podiatrist Foot & Ankle Surgery; Admitting Provider Internal Medicine; PCP Family Medicine; Visit Provider Hospitalist
PROC: 0Y6Q0Z2 Detachment at Left 1st Toe, Mid, Open Approach (ICD-10-PCS; principal; 2019-10-12 12:00)
DX: E11.52 Type 2 diabetes mellitus with diabetic peripheral angiopathy with gangrene (principal); A48.0 Gas gangrene; L03.116 Cellulitis of left lower limb; E11.621 Type 2 diabetes mellitus with foot ulcer; I25.10 Atherosclerotic heart disease of native coronary artery without angina pectoris; I10 Essential (primary) hypertension; F32.9 Major depressive disorder, single episode, unspecified; E78.5 Hyperlipidemia, unspecified; Z95.5 Presence of coronary angioplasty implant and graft; Z79.82 Long term (current) use of aspirin; Z79.4 Long term (current) use of insulin; Z87.891 Personal history of nicotine dependence
CPT/HCPCS: 12345; 36415; 36416; 73630; 80048; 80053; 80202; 81001; 82009; 82962; 83036; 83605; 83735; 85025; 85610; 85651; 85730; 86140; 87040; 87070; 87075; 87077; 87176; 87186; 87205; 88305; 93005; 93923; 93926; 93971; 96365; 96372; 99283; J1815; J2001; J2250; J2543; J2704; J3010; J3370; J3490; J7030; J7050

== ENCOUNTER → 2019-11-08 15:12 | Outpatient (BNVA) | payer OTHER, SELFPAY | PROVIDERS: PCP Family Medicine; Referring Provider Podiatrist Foot & Ankle Surgery; Visit Provider Internal Medicine Cardiovascular Disease | DX: I73.9 Peripheral vascular disease, unspecified (principal); Z79.899 Other long term (current) drug therapy | CPT/HCPCS: 80048; 85025 ==

== ENCOUNTER 2019-11-21 07:50 | Outpatient (CLI) | payer OTHER, SELFPAY ==
--- NOTE | 2019-11-21 08:00 | CT_ITS ---
WS: [id number] CTA ABDOMINAL AORTA WITH RUNOFF TECHNIQUE: Contrast enhanced CTA of the abdominal aorta with bilateral lower extremity runoff. Multip lanar reformatted images were obtained. MIP reformats were also reviewed. CLINICAL INFORMATION: PAD COMPARISON: None. DLP: 1417.[address] scans at [facility] use at least one of these dose optimization techniques: automat ed exposure control; mA and/or kV adjustment per patient size (includes targeted exams where dose is matched to clinical indication); or iterative reconstruction. FINDINGS: Mild diffuse fatty infiltration liver. Portal vein and splenic vein are patent. Cholecystec nata clips. Heterogeneous splenic enhancement likely due to arterial phase. Normal GE junction. Lung bases are well aerated. Normal renal parenchymal enhancement. No hydronephrosis. Small left renal cys t measuring 16 mm. Marked enlargement of prostate with heterogeneous enhancement. Prostate measures 5 .4 x 6.1 cm. Sigmoid diverticulosis. No evidence of acute diverticulitis. Densely calcified abdominal aorta with peripheral atheromatous disease. Celiac and SMA are patent. Pr oximal renal arteries are patent. No abdominal aortic aneurysm. RIGHT: Dense calcified right common iliac artery. External iliac artery is patent. External iliac art mikal is patent. Mild stenosis right common iliac artery origin. External iliac artery is patent. Commo n femoral artery is patent. Moderate calcified atheromatous disease right common femoral artery. Supe rficial femoral and deep femoral arteries are patent. SFA is patent to the adductor hiatus. Moderate stenosis at the adductor hiatus with narrowing popliteal origin measuring 30-40%. Popliteal artery is patent. Mild to moderate segmental narrowing involving the popliteal artery which remains patent. 50 % stenosis popliteal artery distally just above the knee. Popliteal artery is patent to the trifurcat ion with three-vessel runoff to the ankle. Somewhat diminutive and segmental anterior tibial runoff. LEFT: 60% narrowing left common iliac artery origin. External and internal iliac arteries are patent. Common femoral artery is patent. Superficial femoral and deep femoral arteries are patent. Mild narr owing at the superficial femoral artery origin. Deep femoral artery is patent. Superficial femoral ar alcira is patent. Moderate stenosis popliteal artery origin measuring 30-40% similar to the right side. Popliteal artery is patent to the trifurcation with approximately 30% stenosis just above the knee. Three-vessel runoff to the ankle. CT/CT angio abd aorta runof 25763 IMPRESSION: 1. 50% narrowing RIGHT distal popliteal artery just above the knee. Moderate s egmental narrowing involving the proximal popliteal artery. 2. RIGHT lower extremity three-vessel runoff with poor anterior tibial runoff. 3. 60% stenosis involving the LEFT common iliac artery origin which remains pa tent. 4. Moderate segmental narrowing involving the LEFT popliteal artery with appro ximately 30-40% stenosis at the adductor hiatus and 30% stenosis just above the knee. 5. Three-vessel runoff to the LEFT ankle. 6. Densely calcified abdominal aorta with calcified atheromatous disease and m ural thrombus. 7. Celiac, SMA, and both proximal renal arteries are patent. LARRY is patent. 8. Markedly enlarged prostate. Recommend correlation PSA.
[2019-11-21] MEDS: iohexol 350 mg/mL 100 mL Btl IV (08:34)
== END 2019-11-21 07:51 | disposition home or self-care (01) ==
LOC: RADWPI 07:54
PROVIDERS: Visit Provider Internal Medicine Cardiovascular Disease
DX: I73.9 Peripheral vascular disease, unspecified (principal); I70.8 Atherosclerosis of other arteries; I70.0 Atherosclerosis of aorta; N40.0 Benign prostatic hyperplasia without lower urinary tract symptoms
CPT/HCPCS: 75635; Q9967

== ENCOUNTER 2020-02-12 07:27 | Outpatient (CLI) | payer OTHER, SELFPAY ==
--- NOTE | 2020-02-12 08:00 | USCV_ITS ---
Ricardo Gokul Age: 69 Gender: M : 1950 Exam Date: 02/12/2020 07:45 Ordering Phys: Bhanu Hester MD ([email or web address]) Technologist: Cele Metz [place] [facility] [place]: [place]G PAIN HISTORY: Lower extremity pain. PROCEDURES: Venous duplex imaging was performed in bilateral lower extremities. The following venous structures were evaluated: common femoral vein, profunda vein, proximal portion of the greater saphenous vein, superficial femoral vein, and the popliteal vein. In addition, the posterior tibial and peroneal trunk were evaluated. Serial compression, augmentation maneuvers, and spectral Doppler flow evaluation were performed. FINDINGS: Normal 2-D Doppler and augmentation and compressibility throughout the lower extremity venous structures. Additional imaging through the proximal calf veins also reveals no thrombus. Limited evaluation of the greater saphenous vein is patent with no thrombus. CONCLUSIONS No DVT bilateral lower extremities. Dr. Tavia Plama DO (Electronically Signed) Final Date: 12 February 2020 11:06 S
--- NOTE | 2020-02-12 08:45 | USCV_ITS ---
Gokul Silva Age: 69 Gender: M : 1950 Exam Date: 02/12/2020 07:56 Ordering Phys: Bhanu Hester MD ([email or web address]) Technologist: Cele Metz Exam Location: [facility] [place] Indication: LEG PAIN Risk Factors: Previous Vascular Surgery: Right Brachial BP: / Left Brachial BP: / Right Left Velocity (cm/s) Spectral Plaque Velocity (cm/s) Spectral Plaque Syst/Diast Broadening Syst/Diast Broadening 68.40/ 15.40 Prox CCA 73.90 / 12.10 76.10/ 19.80 Mid CCA 49.60 / 9.90 79.40/ 23.20 Distal CCA 58.40 / 11.00 40.00/ 17.30 Prox ICA 39.20 / 9.90 64.80/ 26.40 Mid ICA 49.40 / 15.00 82.20/ 33.90 Distal ICA 48.50 / 16.30 129.00 ECA 177.30 1.08 ICA/CCA 1.00 Antegrade Vertebral Antegrade 46.70/ 10.60 cm/s 44.40/ 14.30 cm/s Tri Subclavian Tri 64.10 53.20 FINDINGS Comparison: none available. No significant elevation of systolic or diastolic velocities. Waveforms are normal. Mixture of calcified and noncalcified plaque in the bifurcations. CONCLUSIONS Bilateral ICA stenosis less than 50%. Mild bilateral carotid atherosclerosis. Dr. Tavia Palma DO (Electronically Signed) Final Date: 12 February 2020 09:12 S
== END 2020-02-12 07:28 | disposition home or self-care (01) ==
LOC: US 07:28
PROVIDERS: PCP Family Medicine; Visit Provider Internal Medicine Cardiovascular Disease
DX: M79.604 Pain in right leg (principal); M79.605 Pain in left leg; I65.23 Occlusion and stenosis of bilateral carotid arteries
CPT/HCPCS: 93880; 93970

== ENCOUNTER 2020-05-08 14:18 | Outpatient (RCR) | payer OTHER, SELFPAY | END 2020-06-02 23:59 | disposition home or self-care (01) | LOC: SPT 14:18 | PROVIDERS: PCP Family Medicine; Referring Provider Family Medicine; Visit Provider Family Medicine | DX: R53.1 Weakness (principal); M25.552 Pain in left hip; M25.551 Pain in right hip | CPT/HCPCS: 97161 ==

== ENCOUNTER 2021-11-17 10:27 | Emergency (ER) | payer OTHER, SELFPAY ==
[2021-11-17 11:21] VITALS: BP 119/72; PULSE 113; RESP 16; TEMP 36.7; O2SAT 97
--- NOTE | 2021-11-17 14:09 | CT_ITS ---
WS: [id number] CT ABDOMEN PELVIS TECHNIQUE: Noncontrast CT of the abdomen and pelvis with coronal and sagittal reformatted images. CLINICAL INFORMATION: abd pain COMPARISON: CTA November 21, 2019 DLP: 1074.[address] scans at [facility] use at least one of these dose optimization techniques: automated e xposure control; mA and/or kV adjustment per patient size (includes targeted exams where dose is matc hed to clinical indication); or iterative reconstruction. FINDINGS: Lung bases are well aerated. Small amount of micronodular patchy infiltrate in RIGHT middle lobe part ially visualized likely inflammatory. Normal noncontrast spleen. Small esophageal hiatal hernia. Fatt y atrophy of the pancreas. Cholecystectomy. Diffuse fatty infiltration of the liver. Heterogeneous attenuation undersurface LEFT hepatic lobe along the falciform ligament near the caudat e is nonspecific but appears somewhat masslike. Recommend further evaluation with ultrasound or contr ast-enhanced CT abdomen pelvis with liver protocol. No contrast administered on this examination. Adrenal glands are normal. Moderate aortic calcification. Normal caliber abdominal aorta. Small amoun t of perinephric edema. No hydronephrosis in either kidney. LEFT renal cyst measuring 16 mm. Bulky heterogeneous enlarged prostate with calcifications measuring 5.0 x 6.1 cm suspicious for neopl alix/hyperplasia. Thickening of the seminal vesicles bilaterally. Sigmoid diverticulosis. No evidence of acute diverticulitis. No abdominal or pelvic lymphadenopathy. No inguinal lymphadenopathy. CT/CT abdomen pelvis wo con [id number] IMPRESSION: 1. Sigmoid diverticulosis. No evidence of acute diverticulitis. 2. Markedly enlarged heterogeneous prostate with impingement on the bladder. P rostate measures 6.1 x 5.0 cm suspicious for neoplasia/hyperplasia.Recommend co rrelation PSA. Associated thickening of the seminal vesicles. 3. Diffuse fatty infiltration of the liver. 4. Bulky heterogeneous suspected lesion undersurface LEFT hepatic lobe near th e caudate. Recommend further evaluation with ultrasound and/or contrast-enhance d CT abdomen pelvis with liver protocol. This area measures approximately 3.2 x 3.2 CM. Recommend correlation with liver function tests. 5. Small LEFT renal cyst. No hydronephrosis in either kidney. 6. Tiny amount of micronodular infiltrate in the RIGHT middle lobe partially v isualized likely inflammatory. Notified Manuel Simpson MD at 11/17/2021 3:58 PM.
--- NOTE | 2021-11-17 14:35 | W.ED.GENADLT ---
HPI - General Adult General: Chief complaint: Nausea/Vomiting/Diarrhea Stated complaint: Vomiting x4 days Time Seen by Provider: 11/17/21 14:09 History of Present Illness: Patient is a 71-year-old male with history of prior cholecystectomy presenting to the emergency with nausea/vomiting and decreased p.o. intake for the last 5 days. Patient reports generalized weakness and inability to tolerate p.o. Patient denies any abdominal pain, diarrhea melena/hematochezia. Patient denies any fever or chills, cough, runny nose sore throat, chest pain, shortness breath or palpitation or lightheadedness. No complaints currently. Onset:5 days ago Duration:5 days Location:home Severity:moderate Associated symptoms: Reports nausea and vomiting; Deny chest pain, dyspnea, rash or palpitations Review of Systems Const: Denies: fever(s) or chills Eyes: Denies: change in vision ENMT: Denies: mouth pain Card: Denies: chest pain or palpitations Resp: Denies: dyspnea or non-productive cough GI: Reports: nausea, vomiting and other (+decreaesd po intake); Denies: abdominal pain or diarrhea : Denies: dysuria Musc: Denies: extremity pain Skin/Breast: Denies: rash or new lesions Neuro: Denies: weakness in extremities Psych: Reports: other (Normal mood) Jamal/Lymph: Denies: easy bruising PFSH ED PFSH: Medical History (Updated 11/17/21 @ 17:42 by Manuel Simpson MD) Blister of foot CAD (coronary artery disease) Coronary artery disease History of PCI Depression Dyslipidemia Hypertension Insulin dependent diabetes mellitus Surgical History Status post amputation of left great toe Status post cholecystectomy Stented coronary artery 2003 Family History Father Psychiatric illness Depression Mother Cancer Breast cancer Social History Smoking and tobacco status: former smoker Alcohol intake: never Household members: spouse Housing: House Physical Exam Const: COMMON NORMALS: alert HENMT: COMMON NORMALS: atraumatic HEAD & SCALP: atraumatic MOUTH: moist mucous membranes not abnormal Eye: COMMON NORMALS: EOMs intact bilaterally and conjunctivae normal CONJUNCTIVA: Yes conjunctivae normal Neck/C-Spine: COMMON NORMALS: full ROM and supple Resp: COMMON NORMALS: normal respiratory effort and clear to auscultation bilaterally AUSCULTATION: clear to auscultation bilaterally Cardio: COMMON NORMALS: regular rate RATE: regular rate GI: COMMON NORMALS: Soft to palpation and non-tender PALPATION: Yes Soft to palpation OTHER: No focal TTP. NO guarding rebound, guarding, rigidity. No CVA tenderness to percussion. Neg Jc/Neg McBurney's point tenderness, no suprabupic tenderness to palpation. Extremity: COMMON NORMALS: full ROM Neuro: SENSORIUM/ORIENTATION: Yes alert MOTOR EXAM: No Abnormal motor strength present and Other motor observations present (no focal motor deficits) Psych: COMMON NORMALS: speech normal SPEECH: Yes normal speech MOOD & AFFECT: Yes euthymic mood Course Vital Signs: Vital signs: Vital Signs Temperature 98.1 F 11/17/21 11:21 Pulse Rate 89 11/17/21 18:09 Respiratory Rate 16 11/17/21 18:09 Blood Pressure 145/75 11/17/21 18:09 Pulse Oximetry 95 11/17/21 18:09 MDM - General Adult Medical Decision Making Patient is 71-year-old male with history cholecystectomy presenting to the emergency with complaints of nausea/vomiting decreased p.o. intake for the last 5 days. On exam, patient is hemodynamically stable without any focal tenderness palpation on the abdomen. No guarding no rebound tenderness. Triage, patient was noted to be mildly tachycardic. However on arrival, patient's heart rate improved without intervention. Initial CT scan without contrast showed possible heterogeneous liver mass. However repeat CT does not show any focal findings. Patient is noted to have tiny right middle lobe inflammatory infiltrate. No suspicion for other acute intra-abdominal pathology including SBO, biliary pathology, appendicitis, diverticulitis, or other emergent condition requiring surgery. At the present time, I do not suspect ACS or unstable angina as patient has no active complaints of chest pain, troponin within normal limit. EKG is nonischemic. There appears to be mild right middle lobe infiltrate. Given leukocytosis, will treat this for pneumonia. Patient received Zofran and IVF reports feeling symptomatically improved. Patient is now able to tolerate p.o. and hold food down. Heart rate improved after IVF. Incidental findings of prostate mass discussed extensively with patient. Patient received a copy of the CT report with the documented findings. Patient is instructed to follow up urgently with specialists. I have given patient follow up with our classification case manager to be seen by our outpatient Urology for prostate lesion on CT report. Patient aware of a call from our classification case manager to schedule for appointment(s) and verbalizes understanding of the importance of following up. Rx tylenol PRN abd pain, maalox/pepcid PRN dyspepsia, and zofran PRN nausea/vomiting, doxycycline for possible PNA Disposition: Discharge. Patient counseled regarding diagnostic impression, treatment plan. Patient given ED strict return precautions to return for continuation, worsening, or development of new symptoms. Instructed to f/u w/ PCP regarding symptoms today. Patient verbalized understanding. Lab Data : 11/17/21 15:05 11/17/21 15:05 Radiology Impressions Abdomen/Pelvis CT 11/17/21 15:55 IMPRESSION: No mass in the questioned region of the left hepatic lobe. COMMENTS: Consistent with the [employer]'s Incidental Findings Committee white paper (J Am Karina Radiol 2018): Any incidental renal lesion less than 1 cm or classified as too small to characterize, or any incidental cystic renal lesion characterized as simple-appearing, is likely benign. No follow-up imaging is recommended for these lesions per consensus recommendations based on imaging criteria. Laboratory Results WBC 13.3 10^3/uL (4.0-10.0) H 11/17/21 15:05 RBC 5.99 10^6/uL (4.1-5.3) H 11/17/21 15:05 Hgb 17.6 g/dL (11.7-16.6) H 11/17/21 15:05 Hct 49.8 % (42.0-52.0) 11/17/21 15:05 MCV 83.1 fl (80-94) 11/17/21 15:05 MCH 29.4 pg (28.0-34.0) 11/17/21 15:05 MCHC 35.3 g/dL (30.0-36.0) 11/17/21 15:05 RDW 12.6 % (12.1-15.1) 11/17/21 15:05 Plt Count 259 10^3/cmm (130-400) 11/17/21 15:05 MPV 10.5 fL (7.4-10.4) H 11/17/21 15:05 Neut % (Auto) 72.6 % 11/17/21 15:05 Lymph % (Auto) 18.8 % 11/17/21 15:05 [place] % (Auto) 7.8 % 11/17/21 15:05 Eos % (Auto) 0.1 % 11/17/21 15:05 Baso % (Auto) 0.2 % 11/17/21 15:05 Neut # (Auto) 9.64 10^3/uL (1.8-7.7) H 11/17/21 15:05 Lymph # (Auto) 2.5 10^3/uL (0.8-4.8) 11/17/21 15:05 [place] # (Auto) 1.0 10^3/uL (0.2-0.9) H 11/17/21 15:05 Eos # (Auto) 0.0 10^3/uL (0.0-0.8) 11/17/21 15:05 Baso # (Auto) 0.0 10^3/uL (0.0-0.1) 11/17/21 15:05 Nucleated RBC % (auto) 0 % 11/17/21 15:05 Nucleated RBCs # 0.0 /100WBC 11/17/21 15:05 Sodium 138 mmol/L (136-145) 11/17/21 15:05 Potassium 3.4 mmol/L (3.5-5.1) L 11/17/21 15:05 Chloride 95 mmol/L (98-107) L 11/17/21 15:05 Carbon Dioxide 27 mmol/L (22-29) 11/17/21 15:05 Anion Gap 19.4 (5-19) H 11/17/21 15:05 BUN 25 mg/dL (8-23) H 11/17/21 15:05 Creatinine 0.9 mg/dL (0.7-1.2) 11/17/21 15:05 GFR Calculation Not Reportable 11/17/21 15:05 Glucose 77 mg/dL (65-115) 11/17/21 15:05 Calculated Osmolality 289 mOsm/kg (285-295) 11/17/21 15:05 Calcium 10.2 mg/dL (8.5-10.5) 11/17/21 15:05 Total Bilirubin 0.8 mg/dL (0.15-1.2) 11/17/21 15:05 AST 18 U/L (0-40) 11/17/21 15:05 ALT 28 U/L (0-41) 11/17/21 15:05 Alkaline Phosphatase 85 IU/L (40-130) 11/17/21 15:05 Troponin T Baseline 15 ng/L (0-15) 11/17/21 15:05 Troponin T 120 Minute 12.26 ng/L (0-15) 11/17/21 17:21 Delta Troponin T -2.74 ABS# (0-10) L 11/17/21 17:21 Total Protein 7.3 g/dL (6.6-8.7) 11/17/21 15:05 Albumin 4.9 g/dL (3.5-5.2) 11/17/21 15:05 Globulin 2.4 g/dL (1.3-4.6) 11/17/21 15:05 Lipase 13 U/L (13-60) 11/17/21 15:05 Urine Color Dark yellow (Yellow) 11/17/21 13:13 Urine Appearance Clear (CLEAR) 11/17/21 13:13 Urine pH 5 (5-7) 11/17/21 13:13 Ur Specific [place] 1.025 (1.005-1.030) 11/17/21 13:13 Urine Protein 1+ (Negative) H 11/17/21 13:13 Urine Glucose (UA) 4+ (Normal) H 11/17/21 13:13 Urine Ketones 2+ (Negative) H 11/17/21 13:13 Urine Blood Neg (Negative) 11/17/21 13:13 Urine Nitrate Negative (Negative) 11/17/21 13:13 Urine Bilirubin 1+ (Negative) H 11/17/21 13:13 Urine Urobilinogen 1 mg/dL (Negative) H 11/17/21 13:13 Ur Leukocyte Esterase Negative (Negative) 11/17/21 13:13 Urine RBC 0-4 /hpf (0-2) H 11/17/21 13:13 Urine WBC 0-4 /hpf (0-5) H 11/17/21 13:13 Ur Squamous Epith Cells 0-4 /hpf (0-5) H 11/17/21 13:13 Amorphous Sediment Not Reportable 11/17/21 13:13 Urine Bacteria None /hpf (NONE) 11/17/21 13:13 Urine Mucus 1+ /hpf 11/17/21 13:13 Imaging Data Other Imaging: [facility]'s [facility] [address] [place] [address] CT Scan Report Signed Patient: Gokul Silva Unit #: [id number] : 1950 Age/Sex: 71 / M ADM Date: 11/17/21 Loc: ER Room/Bed: Attending Dr: Ordering Provider/Ordering MD: Manuel Simpson MD Date of Service: 11/17/21 Procedure(s): CT abdomen pelvis w con* [id number] Accession Number(s): [id number] Report Number: [id number] PROCEDURE INFORMATION: Exam: CT Abdomen And Pelvis With Contrast Exam date and time: 11/17/2021 4:37 PM Age: 71 years old Clinical indication: Abnormal findings; Abnormal radiologic finding of the abdomen; Radiologic exam and body structure: Liver only; Additional info: Liver pathologies, per request of radiology TECHNIQUE: Imaging protocol: Computed tomography of the abdomen and pelvis with contrast. Radiation optimization: All CT scans at this facility use at least one of these dose optimization techniques: automated exposure control; mA and/or kV adjustment per patient size (includes targeted exams where dose is matched to clinical indication); or iterative reconstruction. Contrast material: OMNIPAQUE 350; Contrast volume: 95 ml; Contrast route: INTRAVENOUS (IV);? COMPARISON: CT abdomen pelvis wo con [id number] 11/17/2021 2:27 PM RADIATION DOSE METRICS: Total DLP (mGy-cm): 3172.54 FINDINGS: Liver: Diffuse hepatic steatosis. No mass in the questioned region within the left hepatic lobe from prior CT. Gallbladder and bile ducts: Cholecystectomy. No ductal dilation. Pancreas: Normal. No ductal dilation. Spleen: Normal. No splenomegaly. Adrenal glands: Normal. No mass. Kidneys and ureters: Redemonstrated small simple appearing left renal cyst in the inferior pole. Additional subcentimeter cysts noted in the right kidney. No hydronephrosis. Stomach and bowel: Sigmoid diverticulosis without findings of acute diverticulitis. No obstruction. No mucosal thickening. Appendix: No evidence of appendicitis. Intraperitoneal space: No free air. No significant fluid collection. Vasculature: No abdominal aortic aneurysm. Lymph nodes: No enlarged lymph nodes. Urinary bladder: Unremarkable as visualized. Reproductive: Enlarged prostate. Bones/joints: No acute fracture. Soft tissues: Unremarkable. CT/CT abdomen pelvis w con* [id number] IMPRESSION: No mass in the questioned region of the left hepatic lobe. ? COMMENTS: Consistent with the [employer]'s Incidental Findings Committee white paper (J Am Karina Radiol 2018): Any incidental renal lesion less than 1 cm or classified as too small to characterize, or any incidental cystic renal lesion characterized as simple-appearing, is likely benign. No follow-up imaging is recommended for these lesions per consensus recommendations based on imaging criteria. ? Dictated By: Negro Herman DO Signed By: Negro Herman DO Signed Date/Time: 11/17/21 1725 DD/ [address] [address] [address] Scan Report Signed Patient: Gokul Silva Unit #: [id number] : 1950 Age/Sex: 71 / M ADM Date: 11/17/21 Loc: ER Room/Bed: Attending Dr: Ordering Provider/Ordering MD: Manuel Simpson MD Date of Service: 11/17/21 Procedure(s): CT abdomen pelvis wo con [id number] Accession Number(s): [id number] Report Number: [id number] WS: [id number] CT ABDOMEN PELVIS TECHNIQUE: Noncontrast CT of the abdomen and pelvis with coronal and sagittal reformatted images. CLINICAL INFORMATION: abd pain COMPARISON: CTA November 21, 2019 DLP: 1074.[address] [facility] use at least one of these dose optimization techniques: automated exposure control; mA and/or kV adjustment per patient size (includes targeted exams where dose is matched to clinical indication); or iterative reconstruction. FINDINGS: Lung bases are well aerated. Small amount of micronodular patchy infiltrate in RIGHT middle lobe partially visualized likely inflammatory. Normal noncontrast spleen. Small esophageal hiatal hernia. Fatty atrophy of the pancreas. Cholecystectomy. Diffuse fatty infiltration of the liver. Heterogeneous attenuation undersurface LEFT hepatic lobe along the falciform ligament near the caudate is nonspecific but appears somewhat masslike. Recommend further evaluation with ultrasound or contrast-enhanced CT abdomen pelvis with liver protocol. No contrast administered on this examination. Adrenal glands are normal. Moderate aortic calcification. Normal caliber abdominal aorta. Small amount of perinephric edema. No hydronephrosis in either kidney. LEFT renal cyst measuring 16 mm. Bulky heterogeneous enlarged prostate with calcifications measuring 5.0 x 6.1 cm suspicious for neoplasia/hyperplasia. Thickening of the seminal vesicles bilaterally. Sigmoid diverticulosis. No evidence of acute diverticulitis. No abdominal or pelvic lymphadenopathy. No inguinal lymphadenopathy. CT/CT abdomen pelvis wo con [id number] IMPRESSION: ? 1.? Sigmoid diverticulosis. No evidence of acute diverticulitis. 2.? Markedly enlarged heterogeneous prostate with impingement on the bladder. Prostate measures 6.1 x 5.0 cm suspicious for neoplasia/hyperplasia.Recommend correlation PSA. Associated thickening of the seminal vesicles. 3.? Diffuse fatty infiltration of the liver. 4.? Bulky heterogeneous suspected lesion undersurface LEFT hepatic lobe near the caudate. Recommend further evaluation with ultrasound and/or contrast-enhanced CT abdomen pelvis with liver protocol. This area measures approximately 3.2 x 3.2 CM. Recommend correlation with liver function tests. 5.? Small LEFT renal cyst. No hydronephrosis in either kidney. 6.? Tiny amount of micronodular infiltrate in the RIGHT middle lobe partially visualized likely inflammatory. ? Notified Manuel Simpson MD at 11/17/2021 3:58 PM. ? ? Dictated By: Oni Granados MD Signed By: Oni Granados MD Signed Date/Time: 11/17/21 1558 DD/ 1544 Discharge Plan Discharge Patient Disposition: Home Clinical Impression: Nausea & vomiting, Decrease in appetite, Pneumonia Condition: Stable Prescriptions: New Pepcid 20 mg tablet 20 mg PO BID PRN (Reason: abdominal pain) 10 Days Qty: 20 0RF doxycycline hyclate 100 mg tablet 100 mg PO BID 10 Days Qty: 20 0RF No Action Novolin R Regular U-100 Insuln 100 unit/mL solution 2 unit SUBCUT .sliding scale 0RF losartan 100 mg tablet 100 mg PO DAILY 0RF paroxetine HCl 20 mg tablet 40 mg PO DAILY 0RF aspirin [Aspir-Jolly] 325 mg tablet,delayed release (DR/EC) 325 mg PO DAILY 0RF (DME) Diabetic Shoes See Rx Instructions .ROUTE .MEDSUPPLY Qty: 1 0RF Rx Instructions: toe filler left great toe tamsulosin 0.4 mg capsule 0.8 mg PO DAILY 0RF metoprolol tartrate 25 mg tablet 12.5 mg PO BID Qty: 90 3RF finasteride 5 mg Tablet 5 mg PO DAILY 0RF Discharge Orders: Discharge ED (Routine); Ordered 11/17/21 Ordered By: Manuel Simpson Referrals: Madison Villegsa MD [Primary Care Provider] - Patient Instructions: Acute Nausea and Vomiting (ED) Activity Restrictions/Additional Instructions: Please come back if you have any abdominal pain, fever or chills, nausea or vomiting, diarrhea, blood in the stool, inability hold down liquid or solids, or any new concerning complaints. Please take your antibiotics as instructed. Watch out for signs of skin changes/redness, mouth redeness or swelling, nausea/vomiting, diarrhea, blood in the urine or any new or concerning complaints. Our classification case manager will have you follow-up with Urology in the next few days for prostate lesion. You would be expected to have a phone call with our classification case manager who will put you on the schedule. You can expect a call from us in the next 2-3 days. If you don't hear from us, call us back in the emergency room at [phone]. Here's a copy of your CT report: Gokul Silva??71??M??1950 ? Allergy/Adv: atorvastatin, cephalexin, lisinopril, metformin (More??) Close Abdomen/Pelvis CT (Signed) Negro Herman - 11/17/21 Abdomen/Pelvis CT (Signed) Oni Graandos - 11/17/21 Carotid Doppler Study (Signed) Tavia Palma - 02/12/20 Venous Duplex (Signed) Tavia Palma - 02/12/20 Aorta w/Runoff CTA (Signed) Oni Granados - 11/21/19 Foot X-Ray (Signed) Tavia Palma - 10/13/19 Doppler Study Ultrasound (Signed) Dario Moreno - 10/12/19 Venous Duplex (Signed) Rosangela Sylvester - 10/11/19 Foot X-Ray (Signed) Ольга Sylvestern - 10/11/19 Duplex Scan Lower Extremity Artery (Signed) Kojo Morenomonycarlos alberto - 10/11/19 Foot X-Ray (Signed) Tyree Gibbs - 10/11/19 Launch?Image [facility] [address] [place] [address] CT Scan Report Signed Patient: Gokul Silva Unit #: [id number] : 1950 Age/Sex: 71 / M ADM Date: 11/17/21 Loc: ER Room/Bed: Attending Dr: Ordering Provider/Ordering MD: Manuel Simpson MD Date of Service: 11/17/21 Procedure(s): CT abdomen pelvis wo con [id number] Accession Number(s): [id number] Report Number: [id number] WS: [id number] CT ABDOMEN PELVIS TECHNIQUE: Noncontrast CT of the abdomen and pelvis with coronal and sagittal reformatted images. CLINICAL INFORMATION: abd pain COMPARISON: CTA November 21, 2019 DLP: 1074.[address] scans at [facility] use at least one of these dose optimization techniques: automated exposure control; mA and/or kV adjustment per patient size (includes targeted exams where dose is matched to clinical indication); or iterative reconstruction. FINDINGS: Lung bases are well aerated. Small amount of micronodular patchy infiltrate in RIGHT middle lobe partially visualized likely inflammatory. Normal noncontrast spleen. Small esophageal hiatal hernia. Fatty atrophy of the pancreas. Cholecystectomy. Diffuse fatty infiltration of the liver. Heterogeneous attenuation undersurface LEFT hepatic lobe along the falciform ligament near the caudate is nonspecific but appears somewhat masslike. Recommend further evaluation with ultrasound or contrast-enhanced CT abdomen pelvis with liver protocol. No contrast administered on this examination. Adrenal glands are normal. Moderate aortic calcification. Normal caliber abdominal aorta. Small amount of perinephric edema. No hydronephrosis in either kidney. LEFT renal cyst measuring 16 mm. Bulky heterogeneous enlarged prostate with calcifications measuring 5.0 x 6.1 cm suspicious for neoplasia/hyperplasia. Thickening of the seminal vesicles bilaterally. Sigmoid diverticulosis. No evidence of acute diverticulitis. No abdominal or pelvic lymphadenopathy. No inguinal lymphadenopathy. CT/CT abdomen pelvis wo con [id number] IMPRESSION: ? 1.? Sigmoid diverticulosis. No evidence of acute diverticulitis. 2.? Markedly enlarged heterogeneous prostate with impingement on the bladder. Prostate measures 6.1 x 5.0 cm suspicious for neoplasia/hyperplasia.Recommend correlation PSA. Associated thickening of the seminal vesicles. 3.? Diffuse fatty infiltration of the liver. 4.? Bulky heterogeneous suspected lesion undersurface LEFT hepatic lobe near the caudate. Recommend further evaluation with ultrasound and/or contrast-enhanced CT abdomen pelvis with liver protocol. This area measures approximately 3.2 x 3.2 CM. Recommend correlation with liver function tests. 5.? Small LEFT renal cyst. No hydronephrosis in either kidney. 6.? Tiny amount of micronodular infiltrate in the RIGHT middle lobe partially visualized likely inflammatory. ? Notified Manuel Simpson MD at 11/17/2021 3:58 PM. ? ? Dictated By: Oni Granados MD Signed By: Oni Granados MD Signed Date/Time: 11/17/21 1558 DD/ 1544 Coding Level of Care Code ED Patent Searcher for Chg Fwd Exam Comprehensive
--- NOTE | 2021-11-17 14:42 | ECG_ITS ---
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 Measurements Intervals [place] Rate: 101 P: 17 AR: 166 QRS: 0 QRSD: 101 T: 65 QT: 323 QTc: 419 Interpretive Statements SINUS TACHYCARDIA NONSPECIFIC T-WAVE ABNORMALITY Compared to ECG 10/12/2019 11:02:13 T-wave abnormality now present Sinus rhythm no longer present Myocardial infarct finding no longer present Electronically Signed On 11-17-2021 17:52:58 CDT by Bronson Gudino M.D. [id number]
--- NOTE | 2021-11-17 14:54 | PC.PHAR ---
PT STATES HE STILL TAKES METOPROLOL TARTRATE 12.5MG BID. MEDICATION IS NOT ON [facility] LIST [facility].
[2021-11-17 15:10] LABS: Basophils % 0.2 %; Eosinophils % 0.1 %; Hematocrit 49.8 % (42.0-52.0); Hemoglobin 17.6 g/dL (11.7-16.6); Lymphocytes # 2.5 10^3/uL (0.8-4.8); Lymphocytes % 18.8 %; Mean Corpuscular HGB Conc 35.3 g/dL (30.0-36.0); Mean Corpuscular Hemoglobin 29.4 pg (28.0-34.0); Mean Corpuscular Volume 83.1 fl (80-94); Mean Platelet Volume 10.5 fL (7.4-10.4); Monocytes % 7.8 %; Neutrophils # 9.64 10^3/uL (1.8-7.7); Neutrophils % 72.6 %; Nucleated Red Blood Cells % 0 %; Platelet Count 259 10^3/cmm (130-400); Red Blood Count 5.99 10^6/uL (4.1-5.3); Red Cell Distribution Width 12.6 % (12.1-15.1); White Blood Count 13.3 10^3/uL (4.0-10.0)
[2021-11-17] MEDS: ondansetron 2 mg/ML SDV 2 mL 4 MG IVP (15:17)
[2021-11-17] MEDS: sodium chloride 0.9% 1,000 ML 999 ML IV (15:18)
[2021-11-17 15:46] LABS: Troponin(5th) Baseline 15 ng/L (0-15)
[2021-11-17 15:48] LABS: Alanine Aminotransferase 28 U/L (0-41); Albumin Level 4.9 g/dL (3.5-5.2); Alkaline Phosphatase 85 IU/L (40-130); Anion Gap 19.4 (5-19); Aspartate Amino Transferase 18 U/L (0-40); Blood Urea Nitrogen 25 mg/dL (8-23); Calcium 10.2 mg/dL (8.5-10.5); Carbon Dioxide 27 mmol/L (22-29); Chloride 95 mmol/L (98-107); Globulin 2.4 g/dL (1.3-4.6); Glucose 77 mg/dL (65-115); Lipase 13 U/L (13-60); Osmolality Calculated 289 mOsm/kg (285-295); Potassium 3.4 mmol/L (3.5-5.1); Sodium 138 mmol/L (136-145); Total Bilirubin 0.8 mg/dL (0.15-1.2); Total Protein 7.3 g/dL (6.6-8.7)
[2021-11-17 15:55] LABS: Add Urine Microscopic? YES; Bilirubin Urine 1+ (Negative); Blood Urine Neg (Negative); Glucose Urine UA 4+ (Normal); Ketones Urine 2+ (Negative); Leukocyte Esterase Urine Negative (Negative); Mucus Urine 1+ /hpf; Nitrate Urine Negative (Negative); Protein Urine 1+ (Negative); RBC Urine 0-4 /hpf (0-2); Specific Gravity, Urine 1.025 (1.005-1.030); Squamous Epithelial Cell Urine 0-4 /hpf (0-5); Urine Appearance Clear (CLEAR); Urine Color Dark Yellow (Yellow); Urobilinogen Urine 1 mg/dL (Negative); WBC Urine 0-4 /hpf (0-5); pH Urine 5 (5-7)
--- NOTE | 2021-11-17 15:55 | CTR_ITS ---
PROCEDURE INFORMATION: Exam: CT Abdomen And Pelvis With Contrast Exam date and time: 11/17/2021 4:37 PM Age: 71 years old Clinical indication: Abnormal findings; Abnormal radiologic finding of the abdomen; Radiologic exam and body structure: Liver only; Additional info: Liver pathologies, per request of radiology TECHNIQUE: Imaging protocol: Computed tomography of the abdomen and pelvis with contrast. Radiation optimization: All CT scans at this facility use at least one of these dose optimization techniques: automated exposure control; mA and/or kV adjustment per patient size (includes targeted exams where dose is matched to clinical indication); or iterative reconstruction. Contrast material: OMNIPAQUE 350; Contrast volume: 95 ml; Contrast route: INTRAVENOUS (IV); COMPARISON: CT abdomen pelvis wo con [id number] 11/17/2021 2:27 PM RADIATION DOSE METRICS: Total DLP (mGy-cm): 3172.54 FINDINGS: Liver: Diffuse hepatic steatosis. No mass in the questioned region within the left hepatic lobe from prior CT. Gallbladder and bile ducts: Cholecystectomy. No ductal dilation. Pancreas: Normal. No ductal dilation. Spleen: Normal. No splenomegaly. Adrenal glands: Normal. No mass. Kidneys and ureters: Redemonstrated small simple appearing left renal cyst in the inferior pole. Additional subcentimeter cysts noted in the right kidney. No hydronephrosis. Stomach and bowel: Sigmoid diverticulosis without findings of acute diverticulitis. No obstruction. No mucosal thickening. Appendix: No evidence of appendicitis. Intraperitoneal space: No free air. No significant fluid collection. Vasculature: No abdominal aortic aneurysm. Lymph nodes: No enlarged lymph nodes. Urinary bladder: Unremarkable as visualized. Reproductive: Enlarged prostate. Bones/joints: No acute fracture. Soft tissues: Unremarkable. CT/CT abdomen pelvis w con* [id number] IMPRESSION: No mass in the questioned region of the left hepatic lobe. COMMENTS: Consistent with the [employer]'s Incidental Findings Committee white paper (J Am Karina Radiol 2018): Any incidental renal lesion less than 1 cm or classified as too small to characterize, or any incidental cystic renal lesion characterized as simple-appearing, is likely benign. No follow-up imaging is recommended for these lesions per consensus recommendations based on imaging criteria.
[2021-11-17 15:56] LABS: Add Urine Culture? No
--- NOTE | 2021-11-17 16:42 | ECG_ITS ---
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 Measurements Intervals [place] Rate: 85 P: 35 OK: 168 QRS: 25 QRSD: 98 T: 57 QT: 357 QTc: 427 Interpretive Statements SINUS RHYTHM WITH FREQUENT VENTRICULAR PREMATURE COMPLEXES NONSPECIFIC T-WAVE ABNORMALITY Compared to ECG 11/17/2021 14:53:24 Ventricular premature complex(es) now present Sinus tachycardia no longer present T-wave abnormality still present Electronically Signed On 11-17-2021 17:57:14 CDT by Bronson Gudino M.D. [id number]
[2021-11-17] MEDS: iohexol 350 mg/mL 100 mL Btl IV (16:53)
[2021-11-17 17:47] VITALS: BP 158/75; PULSE 88; O2SAT 95
[2021-11-17 18:09] VITALS: BP 145/75; PULSE 89; RESP 16; O2SAT 95
[2021-11-17 18:13] LABS: Troponin 5 2HR 12.26 ng/L (0-15)
[2021-11-17 19:11] LABS: Troponin 5 2HR Delta -2.74 ABS# (0-10)
--- NOTE | 2021-11-18 10:37 | DCPLANNER ---
Addendum entered by Trista Green 12/26/21 16:07: Patient had a follow up appointment scheduled for 12.19.21 this appointment was rescheduled at a later date. Addendum entered by Trista Green 11/26/21 12:14: Patient has a follow up appointment scheduled for Sunday, December 19, 2021 at 9:[address] Cardenas at urology. Addendum entered by Trista Green 11/18/21 10:40: Patient has [employer] insurance, telephonic case manager sent patients information to Shilpa with [employer] to get the authorization process started. Original Note: manager search engine had message to schedule a follow up appointment for patient with urology. manager search engine sent patients information to the front office staff at urology. Patients information will be printed and reviewed. Clinic will call patient with appointment information.
== END 2021-11-17 18:11 | disposition home or self-care (01) ==
PROVIDERS: Emergency Provider Emergency Medicine; PCP Family Medicine
DX: J18.9 Pneumonia, unspecified organism (principal); R11.2 Nausea with vomiting, unspecified; R63.0 Anorexia; Z79.4 Long term (current) use of insulin; Z79.82 Long term (current) use of aspirin; I25.10 Atherosclerotic heart disease of native coronary artery without angina pectoris; E78.5 Hyperlipidemia, unspecified; I10 Essential (primary) hypertension; E11.9 Type 2 diabetes mellitus without complications; Z87.891 Personal history of nicotine dependence
CPT/HCPCS: 74176; 74177; 80053; 81001; 83690; 84484; 85025; 93005; 96374; 99285; J2405; J7030; Q9967